=== PATIENT | female | born 1935 | race Caucasian/White ===

== ENCOUNTER → 2017-05-06 | Outpatient (CLI) | payer MEDICARE, OTHER ==
[~2017-05-06] MED LIST: FURO20TA3 PO; HYDR-3028 PO; LEVO50TA7 PO; LOSA50TA6 PO; METO25TA62 PO; POTA-167 PO
[2017-05-06 12:26] LABS: Basophils # (auto) 0 uL; Basophils % (auto) 0.5 % (0.0-2.0); CONDITION Y; Eosinophils # (auto) 0.2 uL; Eosinophils % (auto) 3.4 % (0.0-7.0); Hematocrit 36.9 % (36.0-46.0); Hemoglobin 12.7 g/dL (12.2-16.2); Lymphocytes # (auto) 1.5 uL; Lymphocytes % (auto) 24.3 % (10.0-50.0); Mean Corpuscular Hemoglobin 34.3 pg (28.0-32.0); Mean Corpuscular Hgb Conc. 34.4 g/dL (32.0-36.0); Mean Corpuscular Volume 99.6 fL (80.0-100.0); Mean Platelet Volume 8.7 fL (7.4-10.4); Monocytes # (auto) 0.6 uL; Monocytes % (auto) 9.6 % (0.0-12.0); Neutrophils # (auto) 3.9 uL; Neutrophils % (auto) 62.2 % (37.0-80.0); Platelet Count (auto) 254 10^3/uL (140-450); Red Cell Distribution Width 13.9 % (11.6-16.0); White Blood Cell 6.3 10^3/uL (4.4-10.8)
[2017-05-06 12:42] LABS: Albumin 3.7 g/dL (3.4-5.0); BUN/Creatinine Ratio 28.7; Bilirubin, Total 1.8 mg/dL (0.2-1.0); Calcium 9.5 mg/dL (8.5-10.1); Potassium 3.2 mmol/L (3.5-5.1); Total Protein 7.7 g/dL (6.4-8.2)
[2017-05-06 12:43] LABS: Bilirubin, Direct 0.4 mg/dL (0-0.2)
== END | disposition home or self-care (01) ==
LOC: LAB 08:34
PROVIDERS: ATTEND Internal Medicine Cardiovascular Disease
DX: I10 Essential (primary) hypertension (principal); E11.9 Type 2 diabetes mellitus without complications; E03.9 Hypothyroidism, unspecified; E78.00 Pure hypercholesterolemia, unspecified; K74.1 Hepatic sclerosis; D64.9 Anemia, unspecified; E55.9 Vitamin D deficiency, unspecified; N39.0 Urinary tract infection, site not specified
CPT/HCPCS: 36415; 80048; 80061; 80076; 82306; 83036; 84439; 84443; 85025; 93970

== ENCOUNTER → 2017-11-07 | Outpatient (CLI) | payer MEDICARE, OTHER ==
[~2017-11-07] MED LIST changes: +B-COTAB76 PO; +CRANCAP13 PO; -FURO20TA3 PO; +GABA100C9 PO; +HYDR25TA4 PO; +KRIL300C2 PO; -LOSA50TA6 PO; +LOVA20TA4 PO; -METO25TA62 PO; +MULTCHW PO; +TURM500C3 PO
== END | disposition home or self-care (01) ==
LOC: Rad HDHVI 09:52
PROVIDERS: ATTEND Internal Medicine Cardiovascular Disease
DX: M41.9 Scoliosis, unspecified (principal); M85.80 Other specified disorders of bone density and structure, unspecified site
CPT/HCPCS: 71046

== ENCOUNTER → 2018-01-06 | Outpatient (CLI) | payer MEDICARE, OTHER ==
[2018-01-06 12:32] LABS: Basophils # (auto) 0 uL; Basophils % (auto) 0.7 % (0.0-2.0); Eosinophils # (auto) 0.1 uL; Eosinophils % (auto) 2.2 % (0.0-7.0); Hematocrit 42.5 % (36.0-46.0); Hemoglobin 14.3 g/dL (12.2-16.2); Lymphocytes # (auto) 1.3 uL; Lymphocytes % (auto) 26.5 % (10.0-50.0); Mean Corpuscular Hemoglobin 34.1 pg (28.0-32.0); Mean Corpuscular Hgb Conc. 33.5 g/dL (32.0-36.0); Mean Corpuscular Volume 101.6 fL (80.0-100.0); Monocytes # (auto) 0.5 uL; Monocytes % (auto) 9.8 % (0.0-12.0); Neutrophils # (auto) 2.9 uL; Neutrophils % (auto) 60.8 % (37.0-80.0); Nucleated Red Blood Cells % 0.4 %; Platelet Count (auto) 184 10^3/uL (140-450); Red Blood Cells 4.18 10^6/uL (4.0-5.20); Red Cell Distribution Width 15.1 % (11.8-14.3); White Blood Cell 4.8 10^3/uL (4.4-10.8)
== END | disposition home or self-care (01) ==
LOC: LAB 10:46
PROVIDERS: ATTEND Internal Medicine Cardiovascular Disease
DX: D64.9 Anemia, unspecified (principal); I10 Essential (primary) hypertension; E11.9 Type 2 diabetes mellitus without complications
CPT/HCPCS: 36415; 85025

== ENCOUNTER → 2018-01-15 | Outpatient (CLI) | payer MEDICARE, OTHER | END | disposition home or self-care (01) | LOC: LAB 10:27 | PROVIDERS: ATTEND Internal Medicine Cardiovascular Disease | DX: R19.5 Other fecal abnormalities (principal); I10 Essential (primary) hypertension; E11.9 Type 2 diabetes mellitus without complications; E78.00 Pure hypercholesterolemia, unspecified; E78.5 Hyperlipidemia, unspecified | CPT/HCPCS: 82270 ==

== ENCOUNTER → 2018-02-24 | Outpatient (CLI) | payer MEDICARE, OTHER ==
[~2018-02-24] MED LIST changes: +FUROSEMIDE 40 MG/4 ML VIAL ONE; +POTASSIUM CHL 20 Meq TABLET PO ONE
[2018-02-24 13:00] VITALS: BP 150/61
[2018-02-24 13:35] VITALS: BP 150/70
[2018-02-24 16:01] LABS: Basophils # (auto) 0 uL; Eosinophils # (auto) 0.1 uL; Hemoglobin 13.6 g/dL (12.2-16.2); Lymphocytes # (auto) 1.2 uL; Monocytes # (auto) 0.5 uL; White Blood Cell 5.4 10^3/uL (4.4-10.8)
[2018-02-24 16:03] LABS: Basophils % (auto) 0.6 % (0.0-2.0); Eosinophils % (auto) 1.5 % (0.0-7.0); Hematocrit 40.4 % (36.0-46.0); Lymphocytes % (auto) 21.9 % (10.0-50.0); Mean Corpuscular Hemoglobin 34.5 pg (28.0-32.0); Mean Corpuscular Hgb Conc. 33.7 g/dL (32.0-36.0); Mean Corpuscular Volume 102.3 fL (80.0-100.0); Monocytes % (auto) 10.1 % (0.0-12.0); Neutrophils # (auto) 3.6 uL; Neutrophils % (auto) 65.9 % (37.0-80.0); Nucleated Red Blood Cells % 0.3 %; Platelet Count (auto) 173 10^3/uL (140-450); Red Blood Cells 3.94 10^6/uL (4.0-5.20); Red Cell Distribution Width 15.1 % (11.8-14.3)
[2018-02-24 16:14] LABS: BUN/Creatinine Ratio 22.5; Calcium 9.1 mg/dL (8.5-10.1); Magnesium 2.5 mg/dL (1.6-2.6); Potassium 4.4 mmol/L (3.5-5.1)
== END | disposition home or self-care (01) ==
LOC: Rad HDHVI 09:55
PROVIDERS: ATTEND Internal Medicine
DX: E83.40 Disorders of magnesium metabolism, unspecified (principal); D64.9 Anemia, unspecified; I10 Essential (primary) hypertension; M19.072 Primary osteoarthritis, left ankle and foot; M85.872 Other specified disorders of bone density and structure, left ankle and foot; M20.12 Hallux valgus (acquired), left foot; E78.5 Hyperlipidemia, unspecified; E11.9 Type 2 diabetes mellitus without complications; E78.00 Pure hypercholesterolemia, unspecified
CPT/HCPCS: 36415; 73630; 80048; 83735; 85025; 96374; G0463; J1940; 93971

== ENCOUNTER → 2018-07-21 | Outpatient (CLI) | payer MEDICARE, OTHER ==
[~2018-07-21] MED LIST changes: -FUROSEMIDE 40 MG/4 ML VIAL ONE; -POTASSIUM CHL 20 Meq TABLET PO ONE
[2018-07-21 11:58] LABS: Urine Blood Negative /uL (Negative); Urine Specific Gravity 1.016 (1.001-1.035)
[2018-07-21 12:08] LABS: Basophils # (auto) 0 uL; Eosinophils # (auto) 0.1 uL; Lymphocytes # (auto) 1.4 uL; Nucleated Red Blood Cells % 0.2 %
[2018-07-21 12:11] LABS: Basophils % (auto) 0.6 % (0.0-2.0); Eosinophils % (auto) 1.7 % (0.0-7.0); Hematocrit 43.8 % (36.0-46.0); Lymphocytes % (auto) 29.3 % (10.0-50.0); Mean Corpuscular Hemoglobin 35.1 pg (28.0-32.0); Mean Corpuscular Hgb Conc. 34.1 g/dL (32.0-36.0); Monocytes # (auto) 0.4 uL; Monocytes % (auto) 8.5 % (0.0-12.0); Neutrophils # (auto) 2.9 uL; Neutrophils % (auto) 59.9 % (37.0-80.0); Platelet Count (auto) 185 10^3/uL (140-450); Red Blood Cells 4.26 10^6/uL (4.0-5.20); Red Cell Distribution Width 15.1 % (11.8-14.3); White Blood Cell 4.9 10^3/uL (4.4-10.8)
[2018-07-21 12:16] LABS: Albumin 3.5 g/dL (3.4-5.0)
[2018-07-21 12:21] LABS: BUN/Creatinine Ratio 19.7; Calcium 8.7 mg/dL (8.5-10.1); Free T4 (Free Thyroxine) 1.64 ng/dL (0.89-1.76)
[2018-07-21 12:22] LABS: Bilirubin, Total 1.3 mg/dL (0.2-1.0); Total Protein 7.9 g/dL (6.4-8.2)
== END | disposition home or self-care (01) ==
LOC: Rad HDHVI 09:50
PROVIDERS: ATTEND Internal Medicine
DX: Z00.01 Encounter for general adult medical examination with abnormal findings (principal); I08.8 Other rheumatic multiple valve diseases; I10 Essential (primary) hypertension; E78.5 Hyperlipidemia, unspecified; E03.9 Hypothyroidism, unspecified; E55.9 Vitamin D deficiency, unspecified; E11.9 Type 2 diabetes mellitus without complications; D51.9 Vitamin B12 deficiency anemia, unspecified; N39.0 Urinary tract infection, site not specified
CPT/HCPCS: 36415; 80053; 80061; 81003; 82306; 82607; 83036; 84439; 84443; 85025; 87086; 93306

== ENCOUNTER → 2018-08-06 | Outpatient (CLI) | payer MEDICARE, OTHER ==
[2018-08-06 16:15] LABS: Albumin 3.4 g/dL (3.4-5.0)
[2018-08-06 16:19] LABS: Hepatitis B Surface Antibody Positive
[2018-08-06 16:20] LABS: Bilirubin, Direct 0.5 mg/dL (0-0.2); Bilirubin, Total 1.3 mg/dL (0.2-1.0)
[2018-08-06 16:58] LABS: Hepatitis A Total Antibody Positive; Hepatitis B Surface Antigen Negative (Negative)
[2018-08-06 18:42] LABS: Hepatitis B Core Total AB Negative
[2018-08-06 18:43] LABS: Hepatitis C Antibody Negative (Negative)
== END | disposition home or self-care (01) ==
LOC: LAB 11:40
PROVIDERS: ATTEND Internal Medicine
DX: K74.1 Hepatic sclerosis (principal); Z20.5 Contact with and (suspected) exposure to viral hepatitis
CPT/HCPCS: 36415; 80076; 86704; 86706; 86708; 86803; 87340

== ENCOUNTER → 2018-09-17 | Outpatient (CLI) | payer MEDICARE, OTHER ==
[2018-09-17 12:39] LABS: Bilirubin, Direct 0.5 mg/dL (0-0.2); Bilirubin, Total 1.5 mg/dL (0.2-1.0); Total Protein 7.4 g/dL (6.4-8.2)
== END | disposition home or self-care (01) ==
LOC: LAB 08:36
PROVIDERS: ATTEND Internal Medicine
DX: K74.1 Hepatic sclerosis (principal)
CPT/HCPCS: 36415; 80076

== ENCOUNTER 2018-10-30 16:11 | Inpatient (IN) | payer MEDICARE, OTHER ==
[~2018-10-30] VITALS: Ht 160 cm; Wt 84.0 kg
[2018-10-30] MEDS ORDERED: SODIUM CHLORIDE 0.9% 1,000 ML IV ONE (16:32)
[2018-10-30 17:08] LABS: Basophils # (auto) 0 uL; Eosinophils # (auto) 0.1 uL; Hemoglobin 14.9 g/dL (12.2-16.2); Lymphocytes # (auto) 1.3 uL
[2018-10-30 17:11] LABS: Basophils % (auto) 0.3 % (0.0-2.0); Eosinophils % (auto) 0.8 % (0.0-7.0); Hematocrit 42.6 % (36.0-46.0); Lymphocytes % (auto) 15.8 % (10.0-50.0); Mean Corpuscular Hemoglobin 35.5 pg (28.0-32.0); Mean Corpuscular Hgb Conc. 35.1 g/dL (32.0-36.0); Mean Corpuscular Volume 101.2 fL (80.0-100.0); Monocytes # (auto) 0.7 uL; Monocytes % (auto) 8.3 % (0.0-12.0); Neutrophils % (auto) 74.8 % (37.0-80.0); Platelet Count (auto) 160 10^3/uL (140-450); Red Blood Cells 4.21 10^6/uL (4.0-5.20); Red Cell Distribution Width 14.7 % (11.8-14.3)
[2018-10-30 17:13] LABS: Albumin 2.8 g/dL (3.4-5.0); Calcium 8.3 mg/dL (8.5-10.1); Magnesium 2.4 mg/dL (1.6-2.6); Potassium 3.1 mmol/L (3.5-5.1)
[2018-10-30 17:19] LABS: BUN/Creatinine Ratio 17.9; Bilirubin, Total 1.2 mg/dL (0.2-1.0); Total Protein 7.5 g/dL (6.4-8.2)
[2018-10-30] MEDS ORDERED: ENOXAPARIN SOD 80 MG/0.8ML SYRINGE SC ONE (17:30)
[2018-10-30] MEDS ORDERED: POTASSIUM EFFERVESENT TAB 25 MEQ PO ONE (17:30)
[2018-10-30 17:35] LABS: INR 1.1 (0.9-1.15); Partial Thromboplastin Time 30.6 sec (23.78-33.04); Prothrombin Time 11.7 sec (9.27-12.13)
[2018-10-30] MEDS ORDERED: NITROGLYCERIN 0.4 MG SL TAB SL PRN (19:15)
[2018-10-30] MEDS ORDERED: MORPHINE SULFATE 10 MG/ML INJ 1ML SDV IV PRN (19:15)
[2018-10-30] MEDS: SODIUM CHLORIDE 0.9% 1,000 ML IV SCH (19:15)
[2018-10-30] MEDS ORDERED: ONDANSETRON HCL 4 MG/2 ML VIAL IV PRN (19:15)
--- NOTE | 2018-10-30 20:52 | NUR ---
Telemetry admit from ER MAYKEL LANDRY admitted to Telemetry unit. Patient oriented to JANICE SUNG RN primary RN, unit, room, bed, and unit policies regarding patient care and visiting hours. Patient now on continuous telemetry monitoring, tele box # 14 and telemetry reading on arrival to unit is paced 68. Patient weighed by bedscale and encouraged to call if they need something. All questions and concerns addressed, patient verbalized understanding.
[2018-10-30 22:00] VITALS: BP 103/57
[2018-10-30] MEDS: METOPROLOL TARTRATE 25 MG TAB PO SCH (22:24)
[2018-10-30] MEDS: ATORVASTATIN 20 MG TAB PO SCH (22:24)
[2018-10-30 22:29] VITALS: BP 103/57
[2018-10-30] MEDS ORDERED: GABA100C9 PO (22:29)
[2018-10-30] MEDS ORDERED: POTA10TA51 PO (22:29)
[2018-10-30] MEDS ORDERED: LOVA20TA4 PO (22:29)
[2018-10-30] MEDS ORDERED: LEVO25TA49 PO (22:29)
[2018-10-30] MEDS ORDERED: FURO40TA PO (22:29)
[2018-10-30] MEDS ORDERED: HYDR-4683 PO (22:29)
[2018-10-30] MEDS ORDERED: MET25T PO (22:29)
[2018-10-30] MEDS ORDERED: HCTZ25T PO (22:29)
[2018-10-30] MEDS ORDERED: LOSA25TA40 PO (22:29)
[2018-10-30] MEDS ORDERED: CELE200C PO (22:29)
[2018-10-31 05:00] VITALS: BP 104/53
[2018-10-31] MEDS: SODIUM CHLORIDE 0.9% 1,000 ML IV SCH ×2 (05:15→06:48)
[2018-10-31 06:38] LABS: Basophils # (auto) 0 uL; Basophils % (auto) 0.7 % (0.0-2.0); Eosinophils # (auto) 0.1 uL; Eosinophils % (auto) 2.1 % (0.0-7.0); Hematocrit 40.4 % (36.0-46.0); Hemoglobin 14.2 g/dL (12.2-16.2); Lymphocytes # (auto) 1.3 uL; Lymphocytes % (auto) 23.3 % (10.0-50.0); Mean Corpuscular Hemoglobin 35.3 pg (28.0-32.0); Mean Corpuscular Hgb Conc. 35.1 g/dL (32.0-36.0); Mean Corpuscular Volume 100.6 fL (80.0-100.0); Monocytes # (auto) 0.5 uL; Monocytes % (auto) 8.7 % (0.0-12.0); Neutrophils # (auto) 3.5 uL; Neutrophils % (auto) 65.2 % (37.0-80.0); Nucleated Red Blood Cells % 0.1 %; Platelet Count (auto) 125 10^3/uL (140-450); Red Blood Cells 4.01 10^6/uL (4.0-5.20); Red Cell Distribution Width 14.8 % (11.8-14.3); White Blood Cell 5.4 10^3/uL (4.4-10.8)
[2018-10-31 06:40] LABS: BUN/Creatinine Ratio 22.9
[2018-10-31 08:00] VITALS: BP 120/67
--- NOTE | 2018-10-31 08:00 | NUR ---
ASSESSMENT NOTE PT IS ALERT ORIENTED TO SELF AND SITUATION, FORGETFUL ON TIMES, ABLE TO VERBALIS HER DEMANDS, PT IS INCONTINENT IN BOTH URINE AND STOOL, KEPT DRY AND CLEAN AT ALL TIMES, REPOSITION EVERY 2 HOURS AT ALL TIMES, HEAD OF BED ELEVATED FOR ASPIRATION PRECAUTIONS, NEXT TO THE NURSING STATION, CALL LIGHT WITHIN REACH.
[2018-10-31 09:00] VITALS: BP 105/63
[2018-10-31] MEDS: ASPirin-EC 81 mg tab PO SCH ×2 (09:34→10:52)
[2018-10-31] MEDS: GABAPENTIN 100 MG CAP PO SCH (09:34)
[2018-10-31] MEDS: METOPROLOL TARTRATE 25 MG TAB PO SCH ×2 (09:35→23:19)
[2018-10-31] MEDS ORDERED: POTASSIUM CHLORIDE 40 MEQ, LIDOCAINE 1% (LOCAL ANESTH.) 4 ML in SODIUM CHL 0.9% 100 ML IV ONE (10:30)
[2018-10-31] MEDS: ENOXAPARIN SOD 30 MG/0.3 ML SYRINGE SC SCH (10:53)
[2018-10-31 13:00] VITALS: BP 113/73
--- NOTE | 2018-10-31 13:30 | NUR ---
A COMPLETE LINEN BARNES DONE, PT IS INCONTINENT IN URINE.
--- NOTE | 2018-10-31 14:30 | NUR ---
PT WAKE UP, FULLY ALERT ORIENTED, START TO CRY STATED < IS MY DAUGHTER KNOW I AM HERE> DIAL PT'S DAUGHTER PHONE NUMBER, PT IS TALKNING TO HER DAUGHTER.
--- NOTE | 2018-10-31 15:30 | NUR ---
PT'S SON IS CALLING HIS MOM OVER THE PHONE
--- NOTE | 2018-10-31 15:50 | NUR ---
DR HARO IS HERE FOLLOWING UP ON PT.
--- NOTE | 2018-10-31 16:00 | NUR ---
FAMILY PT DAUGHTER ND GRAND DAUGHTER AT BED SIDE
--- NOTE | 2018-10-31 16:30 | NUR ---
PT APPEAR CALM, SMILING, NO MORE CRYING.
[2018-10-31 17:00] VITALS: BP 129/76
--- NOTE | 2018-10-31 18:53 | NUR ---
PT CONTINUE STABLE, CONTINUE MONITORING.
--- NOTE | 2018-10-31 19:00 | NUR ---
OPENING SHIFT NOTE Received report from day shift RN. Patient is A&O X's 3. Family is at bedside. Educated patient and family on POC. They verbalized understanding. Patient shows no s/s of distress but has some periods of confusion. Patient had urinated in bed during this time. Patient was cleaned with warm wash cloth and new david was placed under patient. Bed is in lowest/locked position with side rails up X's 2. Call light is within reach of patient. Will continue to monitor and round hourly/PRN.
[2018-10-31 21:55] VITALS: BP 126/44
[2018-10-31] MEDS: ATORVASTATIN 20 MG TAB PO SCH (23:18)
[2018-11-01] MEDS: SODIUM CHLORIDE 0.9% 1,000 ML IV SCH ×2 (02:34→14:55)
[2018-11-01 04:54] VITALS: BP 127/83
--- NOTE | 2018-11-01 06:13 | NUR ---
ROUNDS Patient is resting in bed at this moment with no s/s of distress noted. Will continue to monitor and round hourly/PRN.
[2018-11-01 07:04] LABS: Basophils # (auto) 0 uL; Basophils % (auto) 0.7 % (0.0-2.0); Eosinophils # (auto) 0.1 uL; Lymphocytes # (auto) 1.1 uL; Monocytes # (auto) 0.5 uL; Red Cell Distribution Width 14.7 % (11.8-14.3)
[2018-11-01 07:06] LABS: Eosinophils % (auto) 2.2 % (0.0-7.0); Lymphocytes % (auto) 19.7 % (10.0-50.0); Mean Corpuscular Hemoglobin 35.3 pg (28.0-32.0); Monocytes % (auto) 8.8 % (0.0-12.0); Neutrophils % (auto) 68.6 % (37.0-80.0); Nucleated Red Blood Cells % 0.2 %; Platelet Count (auto) 139 10^3/uL (140-450); Red Blood Cells 3.96 10^6/uL (4.0-5.20); White Blood Cell 5.8 10^3/uL (4.4-10.8)
--- NOTE | 2018-11-01 07:10 | NUR ---
CLOSING SHIFT NOTE Gave report to day shift RN. Will endorse care over now.
[2018-11-01 07:17] LABS: Potassium 3.4 mmol/L (3.5-5.1)
[2018-11-01 07:26] LABS: BUN/Creatinine Ratio 24.8; Calcium 8.1 mg/dL (8.5-10.1)
[2018-11-01 08:00] VITALS: BP 125/55
--- NOTE | 2018-11-01 08:00 | NUR ---
ASSESSMENT NOTE PT IS ALERT ORIENTED TO SELF AND PLACE, CONFUSED IN TIMES, NO DISTRESS NOTED, INCONTINENT FOR URINE, OCCASIONALLY PT ASK FOR A BED MON, REPOSITION EVERY 2 HOURS AT ALL TIMES, KEPR CLEAN AND DRY, HEAD OF BED ELEVATED FOR ASPIRATION PRECAUTIONS. MENTAL STATUS PT IS MUCH BETTER COMPARING YESTERDAY, ABLE TO INTERACT IN CONVERSATIONS, AGREE TO EAT BREAKFAST, CONTINUE ASSISTING WITH HER MEALS DUE TO SEVERE WEAKNESS ON BOTH UPPER EXTREMITIES.
[2018-11-01 09:00] VITALS: BP 131/68
[2018-11-01] MEDS: ASPirin-EC 81 mg tab PO SCH (09:34)
[2018-11-01] MEDS: METOPROLOL TARTRATE 25 MG TAB PO SCH ×2 (09:34→22:22)
[2018-11-01] MEDS: GABAPENTIN 100 MG CAP PO SCH (09:34)
[2018-11-01] MEDS: ENOXAPARIN SOD 30 MG/0.3 ML SYRINGE SC SCH (09:35)
--- NOTE | 2018-11-01 11:30 | NUR ---
DR HARO AT BED SIDE FOLLOWING UP ON PT.
[2018-11-01] MEDS ORDERED: POTASSIUM EFFERVESENT TAB 25 MEQ PO ONE (11:45)
--- NOTE | 2018-11-01 11:53 | NUR ---
ADELFO JAIN AT BED SIDE FOLLOWING UP ON PT.
--- NOTE | 2018-11-01 11:53 | NUR ---
IV insertion IV access obtained, via clean sterile technique by inserting 22 gauge catheter at after attempt(s). IV secured properly. No trauma to site. Patient tolerated procedure well.OLD IV AT LEFT UPPER EDWARD REMOVED AFTER SIGNS OF INFILTRAION NOTED.
[2018-11-01 13:00] VITALS: BP 125/64
[2018-11-01 17:00] VITALS: BP 131/87
--- NOTE | 2018-11-01 18:38 | NUR ---
PT CONTINUE STABLE, ASSISTED IN EACH MEALS, KEPT CLEAN AND DRY AT ALL TIMES.
--- NOTE | 2018-11-01 19:00 | NUR ---
OPENING SHIFT NOTE Received report from day shift RN. Patient is A&O X's 4 with no s/s of distress. Educated patient on POC and to use call light when needing to use bedpan. Patient verbalized understanding. Bed is in lowest/locked position with side rails up X's 2. Call light and personal items are within reach of patient. Will continue to monitor and round hourly/PRN.
[2018-11-01 21:27] VITALS: BP 97/62
--- NOTE | 2018-11-01 22:15 | NUR ---
ROUNDS Patient was placed on bedpan at this moment and had a BM. Patient was cleaned with warm washcloths at this time. She was repositioned and feet elevated on pillows. Will continue to monitor and round hourly/PRN.
[2018-11-01] MEDS: ATORVASTATIN 20 MG TAB PO SCH (22:21)
[2018-11-02] MEDS: SODIUM CHLORIDE 0.9% 1,000 ML IV SCH ×2 (01:17→18:02)
[2018-11-02 05:44] VITALS: BP 121/66
[2018-11-02] MEDS: LEVOTHYROXINE SODIUM 88 MCG TAB PO SCH (06:25)
--- NOTE | 2018-11-02 06:27 | NUR ---
ROUNDS Patient shows no s/s of distress. Patient was placed on bedpan and she urinated. Patient was cleaned with warm wash cloth and partial linen change was done.
[2018-11-02 07:14] LABS: Basophils # (auto) 0 uL; Hemoglobin 14.5 g/dL (12.2-16.2); Lymphocytes # (auto) 1.1 uL; Monocytes # (auto) 0.5 uL; Neutrophils # (auto) 3.2 uL; Nucleated Red Blood Cells % 0.1 %
[2018-11-02 07:15] LABS: Basophils % (auto) 0.7 % (0.0-2.0); Eosinophils # (auto) 0.1 uL; Hematocrit 42.5 % (36.0-46.0); Lymphocytes % (auto) 21.7 % (10.0-50.0); Mean Corpuscular Hemoglobin 34.8 pg (28.0-32.0); Mean Corpuscular Hgb Conc. 34.1 g/dL (32.0-36.0); Mean Corpuscular Volume 101.9 fL (80.0-100.0); Monocytes % (auto) 10.5 % (0.0-12.0); Neutrophils % (auto) 64.1 % (37.0-80.0); Platelet Count (auto) 135 10^3/uL (140-450); Red Blood Cells 4.17 10^6/uL (4.0-5.20); Red Cell Distribution Width 14.8 % (11.8-14.3)
[2018-11-02 07:28] LABS: Anion Gap 5 (5-15); BUN/Creatinine Ratio 23.4; Blood Urea Nitrogen 22 mg/dL (7-18); Carbon Dioxide 26 mmol/L (21-32); Chloride 109 mmol/L (98-107); GFR African American > 60 mL/min; GFR Non-African American 60 mL/min; Glucose 92 mg/dL (74-106); Potassium 3.7 mmol/L (3.5-5.1); Sodium 140 mmol/L (136-145)
--- NOTE | 2018-11-02 07:30 | NUR ---
OPENING NOTE ASSUMED CARE OF PT. PT IS LAYING ON BED. A&O X4. PT IS ON ROOM AIR, O2 SATURATION 99%. NO SIGNS OF SOB/DISTRESS NOTED. TELE #14, HR 67. SAFETY PRECAUTIONS IN PLACE INCLUDING BED SET TO LOWEST POSITION/LOCKED. BEDSIDE RAILS UP X2. BED ALARM ON. CALL LIGHT WITHIN REACH. INSTRUCTED PT TO CALL FOR ASSISTANCE. DISCUSSED POC WITH PT. WILL CONTINUE TO MONITOR Q 1HR AND PRN.
[2018-11-02 09:48] VITALS: BP 109/66
[2018-11-02] MEDS: ASPirin-EC 81 mg tab PO SCH (10:40)
[2018-11-02] MEDS: GABAPENTIN 100 MG CAP PO SCH (10:40)
[2018-11-02] MEDS: METOPROLOL TARTRATE 25 MG TAB PO SCH ×2 (10:40→22:44)
[2018-11-02] MEDS: ENOXAPARIN SOD 30 MG/0.3 ML SYRINGE SC SCH (10:41)
[2018-11-02 13:46] VITALS: BP 136/80
[2018-11-02] MEDS ORDERED: HYDROcodone-ACET 5/325MG TAB PO PRN (15:45)
--- NOTE | 2018-11-02 16:59 | NUR ---
PATIENT OFF UNIT VIA BED TO [facility] FOR VQ SCAN.
[2018-11-02 17:24] VITALS: BP 124/77
--- NOTE | 2018-11-02 17:50 | NUR ---
PATIENT BACK ON UNIT VIA BED FROM [facility]. NO SIGNS OF SOB/DISTRESS NOTED.
--- NOTE | 2018-11-02 19:20 | NUR ---
Opening Note Received change of shift report from day shift RN. Patient is awake, alert and oriented x4. No signs or symptoms of distress noted at this time. Patient states she is having back pain 8/. Will medicated as ordered. Reviewed plan of care, patient verbalized understanding. Bed in low and locked position, call light within reach. Will continue to monitor Q1 hour and PRN.
--- NOTE | 2018-11-02 20:54 | NUR ---
CLOSING NOTE ENDORSED CARE TO SUMMER RN.
[2018-11-02] MEDS: ATORVASTATIN 20 MG TAB PO SCH (22:40)
[2018-11-02 23:40] VITALS: BP 110/63
--- NOTE | 2018-11-03 00:15 | NUR ---
Patient resting comfortably in bed with eyes closed. No signs or symptoms noted at this time. Will continue to monitor Q1 hour and PRN.
--- NOTE | 2018-11-03 04:30 | NUR ---
Patient given bed bath, full linen change completed. Patient tolerated well, Will continue to monitor Q1 hour PRN.
[2018-11-03 05:32] VITALS: BP 129/86
[2018-11-03] MEDS: SODIUM CHLORIDE 0.9% 1,000 ML IV SCH (05:50)
[2018-11-03] MEDS: LEVOTHYROXINE SODIUM 88 MCG TAB PO SCH (06:23)
[2018-11-03 07:00] LABS: Basophils # (auto) 0 uL; Basophils % (auto) 0.6 % (0.0-2.0); Monocytes # (auto) 0.6 uL
[2018-11-03 07:04] LABS: Eosinophils # (auto) 0.2 uL; Hematocrit 39.5 % (36.0-46.0); Hemoglobin 13.5 g/dL (12.2-16.2); Lymphocytes # (auto) 1.3 uL; Mean Corpuscular Hemoglobin 35.1 pg (28.0-32.0); Mean Corpuscular Hgb Conc. 34.3 g/dL (32.0-36.0); Mean Corpuscular Volume 102.4 fL (80.0-100.0); Monocytes % (auto) 10.7 % (0.0-12.0); Neutrophils # (auto) 3.2 uL; Neutrophils % (auto) 60.7 % (37.0-80.0); Nucleated Red Blood Cells % 0.2 %; Platelet Count (auto) 115 10^3/uL (140-450); Red Blood Cells 3.85 10^6/uL (4.0-5.20); White Blood Cell 5.3 10^3/uL (4.4-10.8)
[2018-11-03 07:14] LABS: Anion Gap 7 (5-15); Blood Urea Nitrogen 19 mg/dL (7-18); Calcium 7.7 mg/dL (8.5-10.1); Carbon Dioxide 23 mmol/L (21-32); Chloride 109 mmol/L (98-107); Glucose 84 mg/dL (74-106); Potassium 3.7 mmol/L (3.5-5.1); Sodium 139 mmol/L (136-145)
--- NOTE | 2018-11-03 07:15 | NUR ---
Closing Note Report given to dayshift RN. Patient is resting in bed with eyes closed. No signs or symptoms of distress noted at this time.
[2018-11-03 07:21] LABS: BUN/Creatinine Ratio 20.9; GFR African American > 60 mL/min; GFR Non-African American > 60 mL/min
--- NOTE | 2018-11-03 07:25 | NUR ---
OPENING NOTE ASSUMED CARE OF PT. PT IS LAYING ON BED. A&O X4. PT IS ON ROOM AIR, O2 SATURATION 92%. NO SIGNS OF SOB/DISTRESS NOTED. TELE #14, HR 61. PT DENIES ANY PAIN. SAFETY PRECAUTIONS IN PLACE INCLUDING BED SET TO LOWEST POSITION/LOCKED. BEDSIDE RAILS UP X2. BED ALARM ON. CALL LIGHT WITHIN REACH. INSTRUCTED PT TO CALL FOR ASSISTANCE. DISCUSSED POC WITH PT. WILL CONTINUE TO MONITOR Q 1HR AND PRN.
[2018-11-03 09:00] VITALS: BP 125/58
[2018-11-03] MEDS: METOPROLOL TARTRATE 25 MG TAB PO SCH (10:00)
[2018-11-03] MEDS: ASPirin-EC 81 mg tab PO SCH (10:32)
[2018-11-03] MEDS: GABAPENTIN 100 MG CAP PO SCH (10:33)
[2018-11-03] MEDS: ENOXAPARIN SOD 30 MG/0.3 ML SYRINGE SC SCH (10:33)
--- NOTE | 2018-11-03 11:46 | NUR ---
assessment Per consult arrange transportation back to assisted living. Per [facility] they do not have transport for patient. 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 Addendum: 11/03/18 at 1147 by Laura James Amended: Links added.
[2018-11-03 12:25] VITALS: BP 125/58
[2018-11-03 13:41] VITALS: BP 121/58
--- NOTE | 2018-11-03 14:10 | NUR ---
Discharge instructions given as ordered. Encourage to follow up with Dr. Gonzalez on 11/10/18 at 3:00 PM, [id number] [address] ERI Shabazz. . All questions and concerns addressed. Patient verbalized understanding. No home medications held in Pharmacy and no vaccines given. IV removed with catheter intact, pressure dressing applied. Telemetry unit #14 returned to ICU.
--- NOTE | 2018-11-03 14:35 | NUR ---
Patient taken to vehicle via wheelchair by transport with all personal belongings, accompanied by transport staff. No distress noted at time of departure.
== END 2018-11-03 14:35 | disposition home or self-care (01) | DRG 682 ==
LOC: EDBD 16:11 → EDUNIT# 16:11 → ER 16:14 → TELE 19:36 → EAST 20:00 → TELE-EAST 20:55
PROVIDERS: ADMIT Nurse Practitioner Acute Care; ATTEND Internal Medicine
DX: N17.0 Acute kidney failure with tubular necrosis (principal); G92 Toxic encephalopathy; E44.0 Moderate protein-calorie malnutrition; J98.11 Atelectasis; I50.32 Chronic diastolic (congestive) heart failure; I13.0 Hypertensive heart and chronic kidney disease with heart failure and stage 1 through stage 4 chronic kidney disease, or unspecified chronic kidney disease; E87.1 Hypo-osmolality and hyponatremia; N18.3 Chronic kidney disease, stage 3 (moderate); D69.6 Thrombocytopenia, unspecified; E87.6 Hypokalemia; E03.9 Hypothyroidism, unspecified; E78.5 Hyperlipidemia, unspecified; G89.4 Chronic pain syndrome; I70.0 Atherosclerosis of aorta; R54 Age-related physical debility; I08.0 Rheumatic disorders of both mitral and aortic valves; R62.7 Adult failure to thrive; Z79.890 Hormone replacement therapy; Z80.51 Family history of malignant neoplasm of kidney; Z80.8 Family history of malignant neoplasm of other organs or systems; Z82.5 Family history of asthma and other chronic lower respiratory diseases; Z85.3 Personal history of malignant neoplasm of breast; Z90.11 Acquired absence of right breast and nipple; Z95.0 Presence of cardiac pacemaker; Z91.040 Latex allergy status; Z79.899 Other long term (current) drug therapy; Z68.32 Body mass index [BMI] 32.0-32.9, adult
CPT/HCPCS: 36415; 71045; 78582; 80048; 80053; 80061; 83735; 84443; 84484; 85025; 85379; 85610; 85652; 85730; 86141; 87081; 93005; 93306; 96372; 97163; G0378; J2001

== ENCOUNTER → 2019-02-09 | Outpatient (CLI) | payer MEDICARE, OTHER ==
[~2019-02-09] MED LIST changes: +AMIO200T33 PO; +APIX5TAB OR; +B-COCAP23 PO; -B-COTAB76 PO; +CELE200C PO; -CRANCAP13 PO; +FURO40TA PO; -HYDR-3028 PO; +HYDR-4683 PO; -HYDR25TA4 PO; -KRIL300C2 PO; +LEVO25TA49 PO; -LEVO50TA7 PO; +LOSA25TA40 PO; +MET25T PO; +MULTCAP45 PO; -MULTCHW PO; -POTA-167 PO; +POTA10TA51 PO; +PROP80CA40 PO; -TURM500C3 PO
[2019-02-09 16:10] LABS: Urine Blood Negative /uL (Negative); Urine Specific Gravity 1.016 (1.001-1.035)
[2019-02-09 16:22] LABS: Basophils # (auto) 0.1 uL; Eosinophils # (auto) 0.3 uL; Lymphocytes # (auto) 1.3 uL; Neutrophils # (auto) 2.7 uL
[2019-02-09 16:24] LABS: Basophils % (auto) 1.3 % (0.0-2.0); Eosinophils % (auto) 5.8 % (0.0-7.0); Hematocrit 38.5 % (36.0-46.0); Hemoglobin 13.1 g/dL (12.2-16.2); Lymphocytes % (auto) 26.7 % (10.0-50.0); Mean Corpuscular Hemoglobin 35.4 pg (28.0-32.0); Mean Corpuscular Hgb Conc. 33.9 g/dL (32.0-36.0); Mean Corpuscular Volume 104.6 fL (80.0-100.0); Monocytes # (auto) 0.5 uL; Neutrophils % (auto) 56.2 % (37.0-80.0); Nucleated Red Blood Cells % 2.6 %; Platelet Count (auto) 157 10^3/uL (140-450); Red Blood Cells 3.68 10^6/uL (4.0-5.20); Red Cell Distribution Width 16.7 % (11.8-14.3); White Blood Cell 4.8 10^3/uL (4.4-10.8)
[2019-02-09 16:26] LABS: Potassium 3.5 mmol/L (3.5-5.1)
[2019-02-09 16:31] LABS: Free T4 (Free Thyroxine) 1.52 ng/dL (0.89-1.76)
[2019-02-09 16:38] LABS: Albumin 2.5 g/dL (3.4-5.0); BUN/Creatinine Ratio 18.9; Bilirubin, Total 1.4 mg/dL (0.2-1.0); Calcium 8.7 mg/dL (8.5-10.1); Total Protein 7.4 g/dL (6.4-8.2)
== END | disposition home or self-care (01) ==
LOC: LAB 11:39
PROVIDERS: ATTEND Internal Medicine Cardiovascular Disease
DX: N39.0 Urinary tract infection, site not specified (principal); E03.9 Hypothyroidism, unspecified; E55.9 Vitamin D deficiency, unspecified; D51.9 Vitamin B12 deficiency anemia, unspecified; Z79.899 Other long term (current) drug therapy
CPT/HCPCS: 36415; 80053; 80061; 81003; 82306; 82607; 83036; 84439; 84443; 85025; 87086

== ENCOUNTER → 2019-05-11 | Outpatient (CLI) | payer MEDICARE, OTHER ==
[~2019-05-11] MED LIST changes: +FURO1TAB31 PO; -FURO40TA PO; -HYDR-4683 PO; +HYDR-4833 PO; +LOSA25TA38 PO; -LOSA25TA40 PO; +VANCOMYCIN 1GM/250ML 250 ML IV ONE; +cefTRIAXone 1GM/50ML D5W 50 ML IV ONE
[2019-05-11 13:11] VITALS: BP 143/75
--- NOTE | 2019-05-11 13:11 | NUR ---
PATIENT SENT FROM MD SIDE, VERBAL ORDERS RECEIVED ENTERED.
--- NOTE | 2019-05-11 13:30 | NUR ---
IV insertion IV access obtained by Tammy SOTO, via clean sterile technique by inserting 22 gauge catheter at after 1 attempt(s). IV secured properly. No trauma to site. Patient tolerated procedure well.
--- NOTE | 2019-05-11 14:26 | NUR ---
DOPPLER STUDY TO BE DONE IN RECLINER CHAIR DUE TO PATIENTS LIMITED MOBILITY AND DIFFICULTY ACCESSING EXAM TABLE. IV VANCOMYCIN IN PROGRESS, VSS, TOLERATING WELL.
--- NOTE | 2019-05-11 14:35 | NUR ---
VENOUS DOPPLER COMPLETED. TOLERATED WELL. REMAINS IN CHAIR FOR REMAINDER OF INFUSION.
--- NOTE | 2019-05-11 14:45 | NUR ---
INFUSION COMPLETED. TOLERATED WELL. IV removal IV DC'd with sterile technique, catheter fully intact. Pressure dressing applied to site. Patient tolerated procedure well. 3 PERSON ASSIST TO STANDING POSITION AND ASSISTED WITH CLOTHING AND INTO CHAIR.
--- NOTE | 2019-05-11 15:05 | NUR ---
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 IN WHEELCHAIR, WITHOUT DISTRESS. MEDICATION ADMINISTRATION ROCEPHIN 1 GRAM IVP START AT 1330-STOP AT 1345 VANCOMYCIN 1 GRAM IVPB START AT 1345-STOP AT 1445
[2019-05-11 16:05] LABS: Albumin 2.9 g/dL (3.4-5.0); Calcium 8.8 mg/dL (8.5-10.1); Potassium 4.3 mmol/L (3.5-5.1)
[2019-05-11 16:09] LABS: BUN/Creatinine Ratio 22.2; Bilirubin, Total 1.8 mg/dL (0.2-1.0)
[2019-05-11 16:12] LABS: Basophils # (auto) 0 uL; Eosinophils # (auto) 0.2 uL; Eosinophils % (auto) 3.4 % (0.0-7.0); Lymphocytes # (auto) 1.5 uL; Lymphocytes % (auto) 30.3 % (10.0-50.0); Nucleated Red Blood Cells % 0.1 %; Red Cell Distribution Width 17.2 % (11.8-14.3)
[2019-05-11 16:16] LABS: Basophils % (auto) 0.5 % (0.0-2.0); Hemoglobin 13.6 g/dL (12.2-16.2); Mean Corpuscular Hemoglobin 35.3 pg (28.0-32.0); Mean Corpuscular Volume 104.1 fL (80.0-100.0); Monocytes # (auto) 0.5 uL; Monocytes % (auto) 10.8 % (0.0-12.0); Neutrophils # (auto) 2.8 uL; Platelet Count (auto) 113 10^3/uL (140-450); Red Blood Cells 3.84 10^6/uL (4.0-5.20)
== END | disposition home or self-care (01) ==
LOC: CHF HDHVI 13:19
PROVIDERS: ATTEND Internal Medicine Cardiovascular Disease
DX: L03.115 Cellulitis of right lower limb (principal); D64.9 Anemia, unspecified; I10 Essential (primary) hypertension
CPT/HCPCS: 36415; 80053; 85025; 96365; 96375; G0463; J0696; J3370

== ENCOUNTER → 2019-06-01 | Outpatient (CLI) | payer MEDICARE, OTHER ==
[~2019-06-01] MED LIST changes: -VANCOMYCIN 1GM/250ML 250 ML IV ONE; -cefTRIAXone 1GM/50ML D5W 50 ML IV ONE
[2019-06-01 12:50] VITALS: BP 152/85
[2019-06-01 13:35] VITALS: BP 147/74
--- NOTE | 2019-06-01 13:35 | NUR ---
IN TO CLINIC FOR DERRICK BOOT APPLICATION TO BILATERAL LEGS. RIGHT CALF REDDENED, BUT MD DID SEE PATIENT. PT CONTINUES TO BE ON ORAL ANTIBIOTICS. DERRICK BOOTS APPLIED BILATERALLY AND TOLERATED WELL. ASSISTED TO CHAIR WITH 2 PERSON ASSISTANCE. TOLERATED WELL. 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 IN NO DISTRESS OR DISCOMFORT.
[2019-06-01 16:12] LABS: Potassium 3.9 mmol/L (3.5-5.1)
[2019-06-01 16:28] LABS: Basophils # (auto) 0 uL; Eosinophils # (auto) 0.2 uL; Lymphocytes # (auto) 1.3 uL; Mean Corpuscular Volume 104.8 fL (80.0-100.0)
[2019-06-01 16:30] LABS: Basophils % (auto) 1.1 % (0.0-2.0); Eosinophils % (auto) 5.1 % (0.0-7.0); Hematocrit 38.9 % (36.0-46.0); Hemoglobin 13.2 g/dL (12.2-16.2); Lymphocytes % (auto) 33.5 % (10.0-50.0); Mean Corpuscular Hemoglobin 35.4 pg (28.0-32.0); Mean Corpuscular Hgb Conc. 33.8 g/dL (32.0-36.0); Monocytes # (auto) 0.5 uL; Monocytes % (auto) 13.5 % (0.0-12.0); Neutrophils # (auto) 1.8 uL; Neutrophils % (auto) 46.8 % (37.0-80.0); Nucleated Red Blood Cells % 0.3 %; Platelet Count (auto) 117 10^3/uL (140-450); Red Blood Cells 3.71 10^6/uL (4.0-5.20); Red Cell Distribution Width 16.2 % (11.8-14.3); White Blood Cell 3.8 10^3/uL (4.4-10.8)
== END | disposition home or self-care (01) ==
LOC: CHF HDHVI 13:06
PROVIDERS: ATTEND Internal Medicine
DX: E87.6 Hypokalemia (principal); D64.9 Anemia, unspecified; I11.0 Hypertensive heart disease with heart failure; I50.9 Heart failure, unspecified
CPT/HCPCS: 36415; 82565; 84132; 84520; 85025; G0463

== ENCOUNTER → 2019-06-03 | Outpatient (CLI) | payer MEDICARE, OTHER ==
[2019-06-03 09:20] VITALS: BP 137/69
[2019-06-03 10:15] VITALS: BP 132/73
--- NOTE | 2019-06-03 10:15 | NUR ---
IN VIA WHEELCHAIR FOR DERRICK BOOT APPLICATION BILATERALLY. BOTH LEGS OBSERVED AND APPEAR TO BE OVERALL LESS REDDENED AND LESS SWOLLEN COMPARED TO PREVIOUS TREATMENT, NOTED BY BETO PINA AND GIBRAN SOTO. PT ASSISTED TO CHAIR AND DERRICK BOOTS APPLIED BILATERALLY. COVERED WITH COBAN AND STOCKINGNETTE. TOLERATED WELL. DISCHARGED TO CAREGIVER. IN NO DISTRESS OR DISCOMFORT.
--- NOTE | 2019-06-03 10:30 | NUR ---
PT REPORTS CRAMPING IN LEGS. ADDRESSED TO DR HARO AND PT INSTRUCTED TO TAKE MAG OXIDE 400 MG PO DAILY PER BETO PINA.
== END | disposition home or self-care (01) ==
LOC: CHF HDHVI 09:27
PROVIDERS: ATTEND Internal Medicine Cardiovascular Disease
DX: R60.0 Localized edema (principal); I11.0 Hypertensive heart disease with heart failure; I50.31 Acute diastolic (congestive) heart failure
CPT/HCPCS: G0463

== ENCOUNTER → 2019-06-08 | Outpatient (CLI) | payer MEDICARE, OTHER ==
[2019-06-08 09:22] VITALS: BP 140/71
[2019-06-08 10:20] VITALS: BP 155/76
--- NOTE | 2019-06-08 10:20 | NUR ---
IN FOR DERRICK BOOT APPLICATION. NOTED TO HAVE WEIGHT LOSS SINCE LAST VISIT. OLD DERRICK BOOTS REMOVED AND SKIN INTACT. NEW DERRICK BOOTS APPLIED AND TOLERATED WELL. DISCHARGED TO SELF CARE IN WHEELCHAIR WITH AUDIO INSTALLER TO ASSIST HER BACK TO HER FACILITY. VS LUCIENL.
== END | disposition home or self-care (01) ==
LOC: CHF HDHVI 09:33
PROVIDERS: ATTEND Internal Medicine Cardiovascular Disease
DX: E87.70 Fluid overload, unspecified (principal); I11.0 Hypertensive heart disease with heart failure; I50.9 Heart failure, unspecified
CPT/HCPCS: G0463

== ENCOUNTER → 2019-06-10 | Outpatient (CLI) | payer MEDICARE, OTHER ==
[2019-06-10 09:41] VITALS: BP 106/65
--- NOTE | 2019-06-10 09:41 | NUR ---
CHF PT ARRIVED TO CHF CLINIC FOR WOUND CARE (UNNA BOOT THERAPY). A/O X 3 , VSS NO FURTHER TREATMENT TOOK OFF UNNA BOOTS NOT NEEDED TO REAPPLY
[2019-06-10 10:35] VITALS: BP 143/46
--- NOTE | 2019-06-10 10:35 | NUR ---
Discharge Instructions See e-MAR for any mediations given with this visit. Patient education given on disease process. Patient verbalized understanding. Previous labs reviewed. Patient discharged in stable condition with after care instructions and follow up appointment.
== END | disposition home or self-care (01) ==
LOC: CHF HDHVI 09:48
PROVIDERS: ATTEND Internal Medicine
DX: I11.0 Hypertensive heart disease with heart failure (principal); I50.31 Acute diastolic (congestive) heart failure; E87.70 Fluid overload, unspecified
CPT/HCPCS: G0463

== ENCOUNTER → 2019-07-26 | Outpatient (CLI) | payer MEDICARE, OTHER ==
[2019-07-26 12:03] LABS: Basophils # (auto) 0 uL; Eosinophils # (auto) 0.2 uL; Hemoglobin 13.6 g/dL (12.2-16.2); Mean Corpuscular Hgb Conc. 33.2 g/dL (32.0-36.0)
[2019-07-26 12:05] LABS: Eosinophils % (auto) 5.9 % (0.0-7.0); Hematocrit 40.8 % (36.0-46.0); Lymphocytes # (auto) 1.6 uL; Lymphocytes % (auto) 38.6 % (10.0-50.0); Mean Corpuscular Volume 105.3 fL (80.0-100.0); Monocytes # (auto) 0.4 uL; Monocytes % (auto) 9.8 % (0.0-12.0); Neutrophils # (auto) 1.9 uL; Neutrophils % (auto) 44.7 % (37.0-80.0); Nucleated Red Blood Cells % 0.2 %; Platelet Count (auto) 100 10^3/uL (140-450); Red Blood Cells 3.87 10^6/uL (4.0-5.20); Red Cell Distribution Width 15.8 % (11.8-14.3); White Blood Cell 4.2 10^3/uL (4.4-10.8)
[2019-07-26 12:16] LABS: Calcium 8.8 mg/dL (8.5-10.1)
== END | disposition home or self-care (01) ==
LOC: LAB 09:45
PROVIDERS: ATTEND Internal Medicine
DX: D64.9 Anemia, unspecified (principal); I11.0 Hypertensive heart disease with heart failure; I50.9 Heart failure, unspecified
CPT/HCPCS: 36415; 80048; 85025

== ENCOUNTER → 2019-08-30 | Outpatient (CLI) | payer MEDICARE, OTHER | END | disposition home or self-care (01) | LOC: Rad HDHVI 10:00 | PROVIDERS: ATTEND Internal Medicine Cardiovascular Disease | DX: I08.8 Other rheumatic multiple valve diseases (principal); R00.2 Palpitations; G45.9 Transient cerebral ischemic attack, unspecified; I11.0 Hypertensive heart disease with heart failure; I50.23 Acute on chronic systolic (congestive) heart failure; I27.20 Pulmonary hypertension, unspecified | CPT/HCPCS: 93306 ==

== ENCOUNTER 2019-10-27 07:55 | Inpatient (IN) | payer MEDICARE, OTHER ==
[~2019-10-27] VITALS: Ht 160 cm; Wt 91.9 kg
[2019-10-27] MEDS ORDERED: SODIUM CHLORIDE 0.9% 1,000 ML IV ONE (08:11)
[2019-10-27 08:28] LABS: Basophils # (auto) 0.1 uL; Eosinophils # (auto) 0 uL; Monocytes # (auto) 1.1 uL; Nucleated Red Blood Cells % 0.1 %
[2019-10-27 08:30] LABS: Basophils % (auto) 0.5 % (0.0-2.0); Eosinophils % (auto) 0.3 % (0.0-7.0); Lymphocytes # (auto) 2.2 uL; Lymphocytes % (auto) 18.2 % (10.0-50.0); Mean Corpuscular Hemoglobin 35.7 pg (28.0-32.0); Mean Corpuscular Volume 101.8 fL (80.0-100.0); Monocytes % (auto) 8.8 % (0.0-12.0); Neutrophils # (auto) 8.9 uL; Neutrophils % (auto) 72.2 % (37.0-80.0); Platelet Count (auto) 114 10^3/uL (140-450); Red Blood Cells 3.93 10^6/uL (4.0-5.20); White Blood Cell 12.3 10^3/uL (4.4-10.8)
[2019-10-27 08:48] LABS: Calcium 9.2 mg/dL (8.5-10.1); Potassium 3.1 mmol/L (3.5-5.1)
[2019-10-27 08:49] LABS: INR 1.2 (0.9-1.15); Partial Thromboplastin Time 29.1 sec (23.64-32.05)
[2019-10-27 08:54] LABS: BUN/Creatinine Ratio 42.4; Bilirubin, Total 2.8 mg/dL (0.2-1.0); Total Protein 7.8 g/dL (6.4-8.2)
[2019-10-27 10:05] LABS: Urine Bacteria NONE SEEN /hpf (None Seen); Urine Blood Negative /uL (Negative); Urine Hyaline Cast FEW /lpf (0 - 2); Urine Specific Gravity 1.011 (1.001-1.035); Urine WBC <1 /hpf (0 - 5)
[2019-10-27] MEDS ORDERED: ACETAMINOPHEN 500 MG TAB PO ONE (11:00)
[2019-10-27] MEDS: D5W/SOD CHL 0.45%/KCL 20MEQ 1,000 ML IV SCH ×2 (13:00→17:35)
[2019-10-27] MEDS ORDERED: NITROGLYCERIN 0.4 MG SL TAB SL PRN (13:00)
[2019-10-27] MEDS: DOXYCYCLINE 100MG/250ML 250 ML IV SCH (13:00)
--- NOTE | 2019-10-27 15:02 | NUR ---
Pt Arrived on Unit Pt arrived on unit via gurney from ED. Pt is a/ox4 with no s/s of distress or SOB. Pt on bed rest. Pt placed on 2 L NC. Pat is patent, free of kinks and draining to gravity. Safety measures maintained with call light within reach, bed in lowest position and side rails up. Will continue to monitor for changes q1hr and prn.
[2019-10-27 16:11] VITALS: BP 104/49
--- NOTE | 2019-10-27 19:30 | NUR ---
Opening Shift Note Assumed care of patient, awake, AAOx4. No S/S of distress/SOB or pain. On 2L oxygen via nasal cannula. On bedrest, klein catheter patent and draining to gravity. Bed in lowest locked position, side rails up x2, call light within reach. Instructed on POC and to call for assist PRN, will continue to monitor for changes Q1hr and PRN.
[2019-10-27 20:00] VITALS: BP 117/53
[2019-10-27] MEDS: FAMOTIDINE (10MG/ML) 2ML VL IV SCH (21:46)
[2019-10-27] MEDS: HYDROcodone-ACET 5/325MG TAB PO PRN (21:46)
[2019-10-27 22:00] VITALS: BP 117/53
[2019-10-28] VITALS (7 sets, daily range): BP systolic 110–139; BP diastolic 51–70
[2019-10-28] MEDS: DOXYCYCLINE 100MG/250ML 250 ML IV SCH ×2 (01:12→13:38)
[2019-10-28] MEDS ORDERED: LEVOTHYROXINE SODIUM 25 MCG TAB PO SCH (07:00)
--- NOTE | 2019-10-28 07:30 | NUR ---
Opening Shift Note Assumed care of patient, who is alert and oriented x4. No S/S of distress/SOB or pain. Pat catheter system is intact, hanging below bladder, and draining to gravity. Bed is low, locked with 2x side rails up. Call light is within reach. Instructed on POC and to call for assist PRN, will continue to monitor for changes Q1hr and PRN.
--- NOTE | 2019-10-28 07:45 | NUR ---
Respiratory Culture Advised patient that a respiratory culture needs to be obtained. Patient stated she does not have a cough/phlegm at the moment.
[2019-10-28] MEDS: D5W/SOD CHL 0.45%/KCL 20MEQ 1,000 ML IV SCH ×2 (09:00→18:41)
[2019-10-28] MEDS: FAMOTIDINE (10MG/ML) 2ML VL IV SCH ×2 (09:42→21:44)
[2019-10-28] MEDS: AMIODARONE HCL 200 MG TAB PO SCH (09:42)
[2019-10-28] MEDS: [UNRECOGNIZED DRUG - REMARK] PO SCH (09:43)
[2019-10-28] MEDS ORDERED: GABAPENTIN 100 MG CAP PO SCH (10:00)
[2019-10-28] MEDS ORDERED: POTASSIUM EFFERVESENT TAB 25 MEQ GT ONE (10:00)
[2019-10-28] MEDS ORDERED: POTASSIUM EFFERVESENT TAB 25 MEQ GT SCH (10:00)
--- NOTE | 2019-10-28 10:49 | NUR ---
Home medications Asked patient for a current list and she stated for me to call [facility] to get an accurate list. Spoke with staff at [facility] and they will be faxing over a current list of home medications.
--- NOTE | 2019-10-28 11:18 | NUR ---
Paged Dr. Tang To clarify potassium that was ordered as well as to ask about resuming current home medications. Waiting for call back.
[2019-10-28] MEDS ORDERED: FURO40TA4 PO (11:24)
[2019-10-28] MEDS ORDERED: GABA300C10 PO (11:25)
[2019-10-28] MEDS ORDERED: LOSA-39 PO (11:27)
[2019-10-28] MEDS ORDERED: LEVO125T7 PO (11:27)
[2019-10-28] MEDS ORDERED: POTA-180 PO (11:28)
[2019-10-28] MEDS ORDERED: POTASSIUM EFFERVESENT TAB 25 MEQ PO ONE (12:15)
--- NOTE | 2019-10-28 12:18 | NUR ---
Received call back New orders received/carried out to resume patient home medications. Will continue care.
--- NOTE | 2019-10-28 14:10 | NUR ---
Dr. Clyde sam. Updated patient on POC. Let her know that she has an infection so she will be here for a couple of days. This nurse also needed clarification on medications. Patient has home medication Metoprolol 25 mg PO daily and also has Amiodarone 200 mg PO daily. Per eMar these two medications may cause interactions. Per. Dr. Tang okay to schedule and give Metoprolol.
[2019-10-28] MEDS ORDERED: MET50T PO (14:23)
[2019-10-28] MEDS ORDERED: METO25TA5 PO (14:23)
[2019-10-28] MEDS: FUROSEMIDE 40 MG TAB PO SCH (21:45)
[2019-10-28] MEDS: HYDROcodone-ACET 5/325MG TAB PO PRN (21:45)
[2019-10-29] VITALS (7 sets, daily range): BP systolic 97–138; BP diastolic 52–75
[2019-10-29] MEDS: DOXYCYCLINE 100MG/250ML 250 ML IV SCH ×2 (00:59→12:40)
[2019-10-29] MEDS: D5W/SOD CHL 0.45%/KCL 20MEQ 1,000 ML IV SCH (05:03)
[2019-10-29] MEDS: LEVOTHYROXINE SODIUM 50 MCG TAB PO SCH (06:37)
--- NOTE | 2019-10-29 07:30 | NUR ---
Opening Shift Note Assumed care of patient, who is alert and oriented x4. No S/S of distress/SOB or pain. Oxygen at 2L via nasal cannula. Pat catheter system is intact, hanging below bladder, and draining to gravity. Bed is low, locked with 2x side rails up. Call light is within reach. Instructed on POC and to call for assist PRN, will continue to monitor for changes Q1hr and PRN.
--- NOTE | 2019-10-29 08:25 | NUR ---
VQ Scan Patient taken by Nuclear medicine for ordered VQ scan. No distress noted on departure.
--- NOTE | 2019-10-29 08:50 | NUR ---
Patient back from VQ Scan No distress noted upon return. Will continue to monitor.
[2019-10-29] MEDS ORDERED: GABAPENTIN 300 MG CAP PO ONE (10:00)
[2019-10-29] MEDS: [UNRECOGNIZED DRUG - REMARK] PO SCH (10:00)
[2019-10-29] MEDS: FAMOTIDINE (10MG/ML) 2ML VL IV SCH ×2 (10:39→21:52)
[2019-10-29] MEDS: LOSARTAN POTASSIUM 50 MG TAB PO SCH (10:39)
[2019-10-29] MEDS: AMIODARONE HCL 200 MG TAB PO SCH (10:40)
[2019-10-29] MEDS: FUROSEMIDE 40 MG TAB PO SCH (10:40)
[2019-10-29] MEDS: GABAPENTIN 100 MG CAP PO SCH (10:40)
[2019-10-29] MEDS: POTASSIUM EFFERVESENT TAB 25 MEQ PO SCH (10:41)
[2019-10-29 11:08] LABS: Basophils # (auto) 0 uL; Eosinophils # (auto) 0.2 uL; Lymphocytes # (auto) 1.3 uL; Monocytes # (auto) 0.5 uL; Neutrophils # (auto) 2.9 uL
[2019-10-29 11:09] LABS: Basophils % (auto) 0.8 % (0.0-2.0); Hematocrit 41.8 % (36.0-46.0); Hemoglobin 14.4 g/dL (12.2-16.2); Lymphocytes % (auto) 26.7 % (10.0-50.0); Mean Corpuscular Hemoglobin 35.9 pg (28.0-32.0); Mean Corpuscular Hgb Conc. 34.5 g/dL (32.0-36.0); Mean Corpuscular Volume 104.1 fL (80.0-100.0); Monocytes % (auto) 9.8 % (0.0-12.0); Neutrophils % (auto) 57.7 % (37.0-80.0); Nucleated Red Blood Cells % 0.1 %; Platelet Count (auto) 92 10^3/uL (140-450); Red Blood Cells 4.02 10^6/uL (4.0-5.20); Red Cell Distribution Width 15.3 % (11.8-14.3)
[2019-10-29 11:27] LABS: Albumin 2.7 g/dL (3.4-5.0); Calcium 8.7 mg/dL (8.5-10.1); Potassium 3.3 mmol/L (3.5-5.1)
[2019-10-29 11:31] LABS: BUN/Creatinine Ratio 29.6; Total Protein 7.4 g/dL (6.4-8.2)
[2019-10-29] MEDS: METOPROLOL TARTRATE 25 MG TAB PO SCH (12:35)
[2019-10-29] MEDS ORDERED: POTASSIUM EFFERVESENT TAB 25 MEQ PO ONE (14:15)
--- NOTE | 2019-10-29 15:56 | NUR ---
Dr. Clyde Baez Updated on POC. New orders received/carried out.
[2019-10-29] MEDS ORDERED: FLEET ENEMA(ADULT) 135 ML PR ONE (17:45)
[2019-10-29] MEDS ORDERED: LACTULOSE 20Gm/30ML SOLN PO PRN ×2 (18:00)
[2019-10-29] MEDS: FUROSEMIDE 20 MG TAB PO SCH (18:02)
--- NOTE | 2019-10-29 18:30 | NUR ---
Fleet enema Fleet enema administered. Patient tolerated well. Large bowel movement noted.
--- NOTE | 2019-10-29 19:20 | NUR ---
Opening Note pt A&O x4. pt does not show any s/s of distress or discomfort. respirations are even and nonlabored. bed rails x2, and bed in low and locked position. 20g to the left hand saline flush. klein catheter in place for immobility. pt does not report any pain at this time. call light is within reach. pt is on bedrest, and will require mod to max assist. pt does not express any needs at this time.
[2019-10-29] MEDS: LEVALBUTEROL HCL 1.25 MG/3 ML NEB NEB SCH (19:30)
--- NOTE | 2019-10-30 00:04 | NUR ---
Family update Received call from jonathan Orellana. Esteban delivered appropriate password. An update regarding patient vital signs were given.
[2019-10-30] MEDS: DOXYCYCLINE 100MG/250ML 250 ML IV SCH ×2 (01:17→13:00)
--- NOTE | 2019-10-30 01:50 | NUR ---
pt reported having a burning sensation at left hand where abx was being administered. pt did not want the administration to continue. abx was discontinued, iv was flushed and remains patent. will continue to monitor.
--- NOTE | 2019-10-30 04:05 | NUR ---
pt found attempting to get out of bed. pt seems to be in a confused state, and wanted to "walk with a kitchen chair". patient was reoriented to the unit. pt was positioned supine in bed with head elevated. pt concerned about going home. pt was educated on the discharge process. will continue to monitor
[2019-10-30 05:28] VITALS: BP 109/72
[2019-10-30] MEDS: FUROSEMIDE 20 MG TAB PO SCH ×2 (06:00→17:31)
[2019-10-30] MEDS: LEVALBUTEROL HCL 1.25 MG/3 ML NEB NEB SCH (06:16)
[2019-10-30] MEDS: LEVOTHYROXINE SODIUM 50 MCG TAB PO SCH (06:35)
--- NOTE | 2019-10-30 08:00 | NUR ---
Opening Shift Note Assumed care of patient, awake, alert and oriented X1, to self only. Tele# 13, sinus rhythm @ 71 bpm. IV to left hand, 20 gauge, patent and saline locked. Urethral Pat catheter draining clear, yellow urine to gravity. No S/S of distress/SOB or pain. Instructed on POC and to call for assist PRN, verbalized understanding, but requires frequent reminding and re-orienting. Bed locked, in lowest position, call light within reach, will continue to monitor for changes Q1hr and PRN.
[2019-10-30 09:00] VITALS: BP 96/66
[2019-10-30] MEDS: [UNRECOGNIZED DRUG - REMARK] PO SCH (10:00)
[2019-10-30] MEDS: LOSARTAN POTASSIUM 50 MG TAB PO SCH (10:00)
[2019-10-30] MEDS: FAMOTIDINE (10MG/ML) 2ML VL IV SCH (10:00)
[2019-10-30] MEDS: METOPROLOL TARTRATE 25 MG TAB PO SCH (10:00)
[2019-10-30] MEDS: POTASSIUM EFFERVESENT TAB 25 MEQ PO SCH (11:16)
[2019-10-30] MEDS: GABAPENTIN 100 MG CAP PO SCH (11:16)
[2019-10-30] MEDS: AMIODARONE HCL 200 MG TAB PO SCH (11:17)
[2019-10-30 13:00] VITALS: BP 102/47
--- NOTE | 2019-10-30 14:22 | NUR ---
ROUNDS Dr Tang at bedside for rounds, new orders received and followed through. Patient updated on plan of care, verbalized understanding.
--- NOTE | 2019-10-30 14:45 | NUR ---
FAMILY Call placed to Karol, patients daughter and point of contact, message left on voicemail, informing patient has been discharged and needs transportation. Call Placed to Ramos, patient's son, informed him of the above, verbalized he is in [place] and unable to pick patient up but will try to get in contact with Karol.
--- NOTE | 2019-10-30 16:45 | NUR ---
FAMILY Second call placed to Karol, patient's daughter. Informed her patient has been discharged and needs a ride back to [employer]. Patient's daughter stated, "I am out of town, people have lives you know". Informed the hospital is not responsible for transportation, verbalized understanding. Informed to please call me back and keep me updated. Awaiting return call. Patient updated on the above, verbalized understanding.
--- NOTE | 2019-10-30 16:45 | NUR ---
Darinel Hsu RN, Charge nurse of the above note, verbalized understanding.
[2019-10-30 17:00] VITALS: BP 106/52
--- NOTE | 2019-10-30 18:35 | NUR ---
FAMILY Call received from Karol, patient's daughter. Verbalized she will have her daughter and daughters boyfriend pick patient up and they will be here in 1.5 hours.
--- NOTE | 2019-10-30 19:05 | NUR ---
OPENING NOTE pt sitting in bedside chair. pt requested to get back in bed. pt was transferred back into bed with moderate assist. pt iv d/c at this time. pt is alert. resp is even and nonlabored. pt is not in any pain or discomfort. pt is on room air. call light within reach. bed in low locked position.
--- NOTE | 2019-10-30 19:26 | NUR ---
Care endorsed to BRITTANY Mckeon, night nurse.
--- NOTE | 2019-10-30 20:43 | NUR ---
Discharge instructions given as ordered. Encourage to follow up with PMD as instructed. All questions and concerns addressed. Patient verbalized understanding. Medication reconciliation form completed and copy given to patient. IV removed with catheter intact, pressure dressing applied, klein catheter removed. Telemetry unit returned to ICU. Patient taken to vehicle via wheelchair with all personal belongings, accompanied by staff and family member via wheelchair. pt is stable upon discharge. Vibriomycin information given to charge David to call in to pharmacy in the am. No distress noted at time of departure.
--- NOTE | 2019-10-31 10:04 | NUR ---
Prescription for Vibramycin 100 mg BID X3 days called into [facility] @ [phone], spoke to Thais. Patient's daughter Karol briceño and [facility].
== END 2019-10-30 20:40 | disposition home health service (06) | DRG 871 ==
LOC: EDBD 07:55 → ER 07:55 → TELE 07:56 → TELE-EAST 15:12
PROVIDERS: ADMIT Nurse Practitioner Acute Care; ATTEND Internal Medicine Cardiovascular Disease
DX: A41.9 Sepsis, unspecified organism (principal); N17.0 Acute kidney failure with tubular necrosis; E44.0 Moderate protein-calorie malnutrition; J98.11 Atelectasis; I50.32 Chronic diastolic (congestive) heart failure; D68.59 Other primary thrombophilia; I13.0 Hypertensive heart and chronic kidney disease with heart failure and stage 1 through stage 4 chronic kidney disease, or unspecified chronic kidney disease; E87.6 Hypokalemia; E66.9 Obesity, unspecified; G62.9 Polyneuropathy, unspecified; M19.90 Unspecified osteoarthritis, unspecified site; N18.3 Chronic kidney disease, stage 3 (moderate); E78.5 Hyperlipidemia, unspecified; D75.89 Other specified diseases of blood and blood-forming organs; I48.91 Unspecified atrial fibrillation; E03.9 Hypothyroidism, unspecified; Z79.01 Long term (current) use of anticoagulants; Z95.0 Presence of cardiac pacemaker; Z79.899 Other long term (current) drug therapy; Z80.51 Family history of malignant neoplasm of kidney; Z80.8 Family history of malignant neoplasm of other organs or systems; Z82.5 Family history of asthma and other chronic lower respiratory diseases; Z68.35 Body mass index [BMI] 35.0-35.9, adult
CPT/HCPCS: 36415; 51702; 71045; 78582; 80053; 81001; 83605; 83735; 83880; 84443; 84484; 85025; 85379; 85610; 85730; 87040; 93005; 94640; 97110; 97116; 97530; G0378; J3490

== ENCOUNTER 2020-08-25 15:59 | Inpatient (IN) | payer MEDICARE, OTHER ==
[~2020-08-25] VITALS: Ht 162.6 cm; Wt 90.1 kg
[~2020-08-25 15:59] MED LIST changes: -APIX5TAB OR; -CELE200C PO; -FURO1TAB31 PO; +FURO40TA4 PO; -GABA100C9 PO; +GABA300C10 PO; +LEVO125T7 PO; -LEVO25TA49 PO; +LOSA-39 PO; -LOSA25TA38 PO; -MET25T PO; +METO25TA5 PO; +POTA-180 PO; -POTA10TA51 PO; -PROP80CA40 PO
[2020-08-25 16:58] LABS: Basophils # (auto) 0.1 10 ^3/uL (0-0.2); Eosinophils # (auto) 0.2 10 ^3/uL (0-0.8); Hemoglobin 13.4 g/dL (12.2-16.2); Lymphocytes # (auto) 2.4 10 ^3/uL (0.4-5.4); Monocytes # (auto) 0.6 10 ^3/uL (0-1.3); Neutrophils # (auto) 2.4 10 ^3/uL (1.6-8.6)
[2020-08-25 17:00] LABS: Eosinophils % (auto) 3.7 % (0.0-7.0); Hematocrit 39.4 % (36.0-46.0); Lymphocytes % (auto) 41.7 % (10.0-50.0); Mean Corpuscular Hemoglobin 36.1 pg (28.0-32.0); Mean Corpuscular Volume 106.1 fL (80.0-100.0); Monocytes % (auto) 10.9 % (0.0-12.0); Neutrophils % (auto) 42.7 % (37.0-80.0); Nucleated Red Blood Cells % 0.2 %; Platelet Count (auto) 116 10^3/uL (140-450); Red Blood Cells 3.71 10^6/uL (4.0-5.20); Red Cell Distribution Width 17.3 % (11.8-14.3); White Blood Cell 5.7 10^3/uL (4.4-10.8)
[2020-08-25 17:17] LABS: Albumin 2.4 g/dL (3.4-5.0); Calcium 8.4 mg/dL (8.5-10.1); Magnesium 2.5 mg/dL (1.6-2.6)
[2020-08-25 17:18] LABS: Lactic Acid w/Reflex 2.1 mmol/L (0.4-2.0)
[2020-08-25 17:24] LABS: BUN/Creatinine Ratio 24.6; Bilirubin, Total 3.1 mg/dL (0.2-1.0); CRP High Sensitivity 1.1 mg/dL (< 0.3); Total Protein 7.1 g/dL (6.4-8.2)
[2020-08-25 17:45] LABS: Potassium 2.7 mmol/L (3.5-5.1)
[2020-08-25 18:33] LABS: Urine Bacteria NONE SEEN /hpf (None Seen); Urine Blood Negative /uL (Negative); Urine Budding Yeast MODERATE /hpf (None Seen); Urine Hyaline Cast MANY /lpf (0 - 2); Urine Mucus FEW (None Seen); Urine WBC 4 /hpf (0 - 5)
[2020-08-25] MEDS: POTASSIUM CHL 20MEQ/100ML 100 ML IV SCH ×2 (19:17→21:58)
[2020-08-25] MEDS ORDERED: NOREPINEPHRINE 8 MG/250ML KIT 250 ML IV SCH (22:15)
[2020-08-25] MEDS ORDERED: PIPERACILLIN-TAZOB 3.375GM 100 ML IV ONE (22:15)
[2020-08-25] MEDS ORDERED: SODIUM CHLORIDE 0.9% 1,000 ML IV ONE (22:15)
[2020-08-25] MEDS ORDERED: SODIUM CHLORIDE 0.9% 1,750 ML IV ONE (22:30)
[2020-08-25] MEDS ORDERED: ONDANSETRON HCL 4 MG/2 ML VIAL IV PRN (23:30)
[2020-08-25] MEDS ORDERED: ACETAMINOPHEN 325 MG TAB PO PRN (23:30)
[2020-08-25] MEDS ORDERED: DOCUSATE SOD 100 MG CAP PO PRN (23:30)
[2020-08-25] MEDS ORDERED: MORPHINE SULF INJ 2 MG/ML SYRINGE 1ML IV PRN (23:30)
[2020-08-25] MEDS ORDERED: NITROGLYCERIN 0.4 MG SL TAB SL PRN (23:30)
[2020-08-25] MEDS ORDERED: HYDROcodone-ACET 5/325MG TAB PO PRN (23:30)
[2020-08-26] VITALS (7 sets, daily range): BP systolic 104–121; BP diastolic 47–73
--- NOTE | 2020-08-26 03:05 | NUR ---
Telemetry admit from ER MAYKEL LANDRY admitted to Telemetry unit after SBAR received. Patient oriented to primary RN, unit, room, bed, and unit policies regarding patient care and visiting hours. Patient now on continuous telemetry monitoring, tele box #79 and telemetry reading on arrival to unit is SR 73 BPM. Fall and safety precautions in place. Patient weighed by bedscale and encouraged to call if she needs something. Call light within reach. All questions and concerns addressed, patient in agreement. Will continue to monitor q1h and prn.
[2020-08-26] MEDS: PIPERACILLIN-TAZOB 2.25GM 50 ML IV SCH ×3 (05:28→21:07)
[2020-08-26] MEDS: SODIUM CHLOR 0.9% PF (SALINE LOCK) 10ML VIAL/SYR IV SCH ×3 (05:28→21:07)
[2020-08-26] MEDS: LEVOTHYROXINE SODIUM 50 MCG TAB PO SCH (06:09)
[2020-08-26] MEDS ORDERED: GABA300C10 PO (06:29)
[2020-08-26] MEDS ORDERED: LOSA-39 PO (06:29)
[2020-08-26] MEDS ORDERED: AMIO200T33 PO (06:29)
[2020-08-26] MEDS ORDERED: FURO40TA4 PO (06:29)
[2020-08-26] MEDS ORDERED: MULT1TAB95 PO (06:29)
[2020-08-26] MEDS ORDERED: LOVA20TA4 PO (06:29)
[2020-08-26] MEDS ORDERED: LEVO125T7 PO (06:29)
[2020-08-26] MEDS ORDERED: METO25TA5 PO (06:29)
[2020-08-26] MEDS ORDERED: POTA10TA51 PO (06:29)
[2020-08-26] MEDS ORDERED: HYDR-4833 PO (06:29)
--- NOTE | 2020-08-26 08:00 | NUR ---
Opening Shift Note Assumed care of patient, awake and alert. No S/S of distress/SOB or pain. Instructed on POC and to call for assist PRN, will continue to monitor for changes Q1hr and PRN. Bed locked in lowest position with two side rails up and call light in reach.
[2020-08-26 09:09] LABS: Nucleated Red Blood Cells % 0.2 %
[2020-08-26 09:11] LABS: Basophils # (auto) 0.1 10 ^3/uL (0-0.2); Basophils % (auto) 1.2 % (0.0-2.0); Eosinophils # (auto) 0.2 10 ^3/uL (0-0.8); Eosinophils % (auto) 3.3 % (0.0-7.0); Hematocrit 36.5 % (36.0-46.0); Hemoglobin 12.4 g/dL (12.2-16.2); Lymphocytes # (auto) 1.5 10 ^3/uL (0.4-5.4); Lymphocytes % (auto) 32.6 % (10.0-50.0); Mean Corpuscular Hemoglobin 36.2 pg (28.0-32.0); Mean Corpuscular Hgb Conc. 34.1 g/dL (32.0-36.0); Monocytes # (auto) 0.4 10 ^3/uL (0-1.3); Monocytes % (auto) 9.2 % (0.0-12.0); Neutrophils # (auto) 2.5 10 ^3/uL (1.6-8.6); Neutrophils % (auto) 53.7 % (37.0-80.0); Platelet Count (auto) 101 10^3/uL (140-450); Red Blood Cells 3.44 10^6/uL (4.0-5.20); Red Cell Distribution Width 17.2 % (11.8-14.3); White Blood Cell 4.7 10^3/uL (4.4-10.8)
[2020-08-26 09:31] LABS: Albumin 2.2 g/dL (3.4-5.0)
[2020-08-26 09:35] LABS: BUN/Creatinine Ratio 26.6; Bilirubin, Total 2.9 mg/dL (0.2-1.0); Total Protein 6.6 g/dL (6.4-8.2)
[2020-08-26 09:40] LABS: Potassium 2.6 mmol/L (3.5-5.1)
[2020-08-26] MEDS: ZINC SULFATE 220mg CAP or TAB PO SCH (10:00)
[2020-08-26] MEDS: FUROSEMIDE 40 MG/4 ML VIAL IV SCH (10:00)
[2020-08-26] MEDS ORDERED: POTASSIUM CHLORIDE 40 MEQ, LIDOCAINE 1% (LOCAL ANESTH.) 4 ML in SODIUM CHL 0.9% 250 ML IV ONE (10:30)
[2020-08-26] MEDS ORDERED: POTASSIUM EFFERVESENT TAB 25 MEQ PO ONE (10:30)
--- NOTE | 2020-08-26 11:00 | NUR ---
NOTIFIED PHARMACY OF ZINC NOT AVAILABLE. PER PHARMACY THEY WILL REFRESH PIXIS.
--- NOTE | 2020-08-26 11:19 | NUR ---
Nutrition Assessment Notes Please refer to link for full assessment notes. Est Energy needs: [id number] kcals (17-20 kcal/kgBW) Est Protein needs: 51-64 gms/day (0.6-0.75 gm/kgBW) d/t Stg 3 CKF Will continue to monitor and reassess prn. Addendum: 08/26/20 at [address] Amended: Links added.
--- NOTE | 2020-08-26 11:20 | NUR ---
WOUND CARE NOTE: IN TO SEE PATIENT AT THIS TIME PER WOUND CARE CONSULT REQUEST. PATIENT NOTED TO HAVE WOUNDS UPON ADMIT, WOUND PHOTOS TAKEN AT THAT TIME BY BEDSIDE NURSE. PATIENT ADMITTED TO [facility] WITH DIAGNOSIS OF SEPSIS. SHE HAS CURRENT EDER SCORE OF 12. PATIENT NOTED TO BE MAX ASSIST FOR HER ADL'S, INCLUDING TURNING/REPOSITIONING. PATIENT HAS MULTIPLE WOUNDS, INCLUDING INTACT DTI'S TO BILATERAL HEELS AND SACRUM/BUTTOCKS. SHE ALSO HAS A 2 X 1 STG 3 PRESSURE INJURY NOTED TO MEDIAL SACRUM. APPLIED THERAHONEY, REAPPLIED MEPILEX SACRAL DRESSING. RECOMMEND: FREQUENT TURN SCHEDULE Q 2 HOURS,PRN CONDITION PERMITS, WITH PRESSURE REDISTRIBUTION USING PILLOWS/WEDGES, DAILY/PRN DRESSING CHANGE TO SACRAL WOUND, JOES FOAM BOOTS, SPECIALTY AIR MATTRESS (ORDERED), DIETARY CONSULT, SKIN/WOUND CARE PLAN, CONTINUED MONITORING BY WOUND CARE TEAM. Addendum: 08/26/20 at 1545 by Gabriella Ortega RN Amended: Links added.
[2020-08-26] MEDS ORDERED: HEPARIN SODIUM (PORCINE) 5000 UNITS/ML 1ML VIAL ONE (11:35)
[2020-08-26] MEDS: MULTIPLE VITAMIN TAB PO SCH (11:52)
[2020-08-26] MEDS: POTASSIUM CHL 20 Meq TABLET PO SCH (11:53)
[2020-08-26] MEDS: ASCORBIC ACID 500 MG TAB PO SCH ×2 (11:53→21:08)
[2020-08-26] MEDS: FAMOTIDINE 20 MG TAB PO SCH ×2 (11:53→21:07)
[2020-08-26] MEDS: HEPARIN SODIUM (PORCINE) 5000 UNITS/ML 1ML VIAL SC SCH ×2 (12:00→21:09)
--- NOTE | 2020-08-26 12:50 | NUR ---
MEDICATION ZINCE STILL NOT AVAILABLE.
--- NOTE | 2020-08-26 13:00 | NUR ---
LASIX 40 MG IV HELD. BP 104/47 DR GOTTI NOTIFIED. PER DR ANA MARÍA CASTRO TO HOLD.
--- NOTE | 2020-08-26 19:30 | NUR ---
Opening Shift Note Assumed care of patient, eyes open to name. No S/S of distress/SOB/pain. Fall and safety precautions in place. Instructed on POC and to call for assist PRN, patient verbalized understanding and in agreement. Call light within reach. Will continue to monitor for changes Q1hr and PRN.
--- NOTE | 2020-08-26 22:45 | NUR ---
SPECIALTY MATTRESS PATIENT TRANSFERRED SAFELY TO SPECIALTY MATTRESS WITH NO S/S OF DISTRESS/INJURY. PATIENT STATES HER COMFORT LEVEL IMPROVED. WILL CONTINUE TO MONITOR.
[2020-08-27 05:00] VITALS: BP 103/52
[2020-08-27] MEDS: SODIUM CHLOR 0.9% PF (SALINE LOCK) 10ML VIAL/SYR IV SCH ×3 (06:00→22:42)
[2020-08-27] MEDS: PIPERACILLIN-TAZOB 2.25GM 50 ML IV SCH ×3 (06:01→22:42)
[2020-08-27] MEDS: LEVOTHYROXINE SODIUM 50 MCG TAB PO SCH (06:01)
--- NOTE | 2020-08-27 07:00 | NUR ---
OPENING SHIFT NOTE RECEIVED REPORT ON THE PATIENT. SLEEPING IN BED. PATIENT SHOWS NO SIGNS OF DISTRESS AT THIS TIME. WOKE THE PATIENT UP AND DISCUSSED THE PLAN OF CARE WITH THE PATIENT. PATIENT WAS A&O X1 AND COULD NOT ANSWER MY QUESTIONS. BED IN LOWEST POSITION, SIDE RAILS UP X2, AND THE CALL LIGHT IS WITHIN REACH.
[2020-08-27 09:00] VITALS: BP 102/71
[2020-08-27] MEDS: FUROSEMIDE 40 MG/4 ML VIAL IV SCH (10:00)
[2020-08-27] MEDS: ZINC SULFATE 220mg CAP or TAB PO SCH (10:00)
[2020-08-27] MEDS: ASCORBIC ACID 500 MG TAB PO SCH ×2 (10:59→22:00)
[2020-08-27] MEDS: FAMOTIDINE 20 MG TAB PO SCH ×2 (10:59→22:45)
[2020-08-27] MEDS: POTASSIUM CHL 20 Meq TABLET PO SCH (10:59)
[2020-08-27] MEDS: MULTIPLE VITAMIN TAB PO SCH (10:59)
[2020-08-27] MEDS: HEPARIN SODIUM (PORCINE) 5000 UNITS/ML 1ML VIAL SC SCH ×2 (11:03→22:56)
--- NOTE | 2020-08-27 12:18 | NUR ---
DR GOTTI AT THE BEDSIDE. NEW ORDERS RECEIVED.
[2020-08-27 13:00] VITALS: BP 102/50
[2020-08-27] MEDS ORDERED: POTASSIUM CHLORIDE 80 MEQ, LIDOCAINE 1% (LOCAL ANESTH.) 6 ML in SODIUM CHL 0.9% 500 ML IV ONE (13:30)
[2020-08-27 14:22] LABS: Basophils # (auto) 0.1 10 ^3/uL (0-0.2); Basophils % (auto) 1.1 % (0.0-2.0); Eosinophils # (auto) 0.2 10 ^3/uL (0-0.8); Eosinophils % (auto) 3.1 % (0.0-7.0); Hematocrit 34.1 % (36.0-46.0); Hemoglobin 11.6 g/dL (12.2-16.2); Lymphocytes # (auto) 1.7 10 ^3/uL (0.4-5.4); Lymphocytes % (auto) 32.1 % (10.0-50.0); Mean Corpuscular Hemoglobin 35.9 pg (28.0-32.0); Mean Corpuscular Hgb Conc. 34.1 g/dL (32.0-36.0); Mean Corpuscular Volume 105.2 fL (80.0-100.0); Monocytes # (auto) 0.7 10 ^3/uL (0-1.3); Monocytes % (auto) 13.6 % (0.0-12.0); Neutrophils # (auto) 2.6 10 ^3/uL (1.6-8.6); Neutrophils % (auto) 50.1 % (37.0-80.0); Nucleated Red Blood Cells % 0.2 %; Platelet Count (auto) 111 10^3/uL (140-450); Red Blood Cells 3.24 10^6/uL (4.0-5.20); Red Cell Distribution Width 17.1 % (11.8-14.3); White Blood Cell 5.2 10^3/uL (4.4-10.8)
[2020-08-27 14:39] LABS: Albumin 2.1 g/dL (3.4-5.0); Calcium 8.1 mg/dL (8.5-10.1)
--- NOTE | 2020-08-27 14:39 | NUR ---
PAGED DR GOTTI WITH THE RESULTS OF THE ABG. AWAITING A CALL BACK
[2020-08-27 14:43] LABS: BUN/Creatinine Ratio 21.7; Bilirubin, Total 3.2 mg/dL (0.2-1.0); Total Protein 6.1 g/dL (6.4-8.2)
[2020-08-27 14:46] LABS: Potassium 2.5 mmol/L (3.5-5.1)
--- NOTE | 2020-08-27 14:56 | NUR ---
RECEIVED A CALL BACK FROM DR GOTTI. NEW ORDERS RECEIVED.
--- NOTE | 2020-08-27 15:10 | NUR ---
IV insertion IV access obtained, via clean sterile technique by inserting 20 gauge catheter at the right hand after 1 attempt(s). IV secured properly. No trauma to site. Patient tolerated well.
[2020-08-27 17:00] VITALS: BP 100/51
[2020-08-27 22:00] VITALS: BP 99/58
[2020-08-28 05:00] VITALS: BP 130/56
[2020-08-28] MEDS: SODIUM CHLOR 0.9% PF (SALINE LOCK) 10ML VIAL/SYR IV SCH ×3 (06:00→21:48)
[2020-08-28] MEDS: PIPERACILLIN-TAZOB 2.25GM 50 ML IV SCH ×3 (06:00→18:52)
[2020-08-28] MEDS: LEVOTHYROXINE SODIUM 50 MCG TAB PO SCH (08:00)
--- NOTE | 2020-08-28 08:00 | NUR ---
Opening Shift Note Assumed care of patient, awake and alert X3. No S/S of distress/SOB or pain. Patient Klein Catheter was found to be out. When asked patient what happened, patient states "I don't know." New klein catheter inserted using clean and sterile tequniquies. Back hung bellow bladder, klein draining clear yellow urine. Instructed patient on POC and to call for assist PRN, will continue to monitor for changes Q1hr and PRN.
[2020-08-28 09:00] VITALS: BP 124/57
[2020-08-28] MEDS: ASCORBIC ACID 500 MG TAB PO SCH ×2 (10:00→21:49)
[2020-08-28] MEDS: POTASSIUM CHL 20 Meq TABLET PO SCH (10:43)
[2020-08-28] MEDS: ZINC SULFATE 220mg CAP or TAB PO SCH (10:43)
[2020-08-28] MEDS: FUROSEMIDE 40 MG/4 ML VIAL IV SCH (10:43)
[2020-08-28] MEDS: MULTIPLE VITAMIN TAB PO SCH (10:44)
[2020-08-28] MEDS: FAMOTIDINE 20 MG TAB PO SCH ×2 (10:44→21:49)
[2020-08-28] MEDS: HEPARIN SODIUM (PORCINE) 5000 UNITS/ML 1ML VIAL SC SCH ×2 (10:44→21:50)
[2020-08-28 13:00] VITALS: BP 114/65
--- NOTE | 2020-08-28 14:00 | NUR ---
VQ Scan VQ Scan postponed due to machine being down. Will cont to monitor patient.
[2020-08-28 16:39] VITALS: BP 133/59
--- NOTE | 2020-08-28 17:14 | NUR ---
MD Tang aware of patient's VQ scan being postponed due to computer being down. Awaiting new orders at this time.
[2020-08-28 21:00] VITALS: BP 105/62
[2020-08-29] MEDS: PIPERACILLIN-TAZOB 2.25GM 50 ML IV SCH ×3 (03:19→18:23)
[2020-08-29 05:00] VITALS: BP 117/69
[2020-08-29] MEDS: LEVOTHYROXINE SODIUM 50 MCG TAB PO SCH (06:36)
[2020-08-29] MEDS: SODIUM CHLOR 0.9% PF (SALINE LOCK) 10ML VIAL/SYR IV SCH ×3 (06:36→22:28)
--- NOTE | 2020-08-29 07:40 | NUR ---
IV Insertion; CT Chest 20G to L FA inserted. Notified radiology of IV access. Will continue to monitor.
--- NOTE | 2020-08-29 07:45 | NUR ---
Opening Note Assumed pt care from NOC RN. Pt is a/ox4 with no s/s of distress or SOB. PT is currently sitting upright in bed with no complaints at this time. Discussed POC with pt and pending CT angio of chest. Pat is present, free of kinks and is draining to gravity. Safety measures maintained with call light within reach, bed in lowest position and side rails up. Will continue to monitor for changes.
[2020-08-29] MEDS ORDERED: IOHEXOL 300 MG/ML 100ML BOTTLE IJ ONE (08:25)
[2020-08-29] MEDS ORDERED: IOHEXOL 350 MG/ML 100ML IJ ONE (08:26)
--- NOTE | 2020-08-29 08:30 | NUR ---
Pt Off Unit for CT Addendum: 08/29/20 at 0857 by REINA ZAIDI RN RN Pt back on unit.
[2020-08-29 09:00] VITALS: BP 101/60
[2020-08-29] MEDS: FUROSEMIDE 40 MG/4 ML VIAL IV SCH (09:24)
[2020-08-29] MEDS: POTASSIUM CHL 20 Meq TABLET PO SCH (09:24)
[2020-08-29] MEDS: MULTIPLE VITAMIN TAB PO SCH (09:24)
[2020-08-29] MEDS: ZINC SULFATE 220mg CAP or TAB PO SCH (09:24)
[2020-08-29] MEDS: ASCORBIC ACID 500 MG TAB PO SCH ×2 (09:25→22:29)
[2020-08-29] MEDS: HEPARIN SODIUM (PORCINE) 5000 UNITS/ML 1ML VIAL SC SCH ×2 (09:27→22:32)
[2020-08-29] MEDS: FAMOTIDINE 20 MG TAB PO SCH ×2 (09:31→22:28)
--- NOTE | 2020-08-29 11:36 | NUR ---
Nutrition Followup Note Wt 89.4 kg Pt was off the floor with no family by bedside. per pt records pt with severe hypokal correcting. pt is currently on cardiac diet with inadequate PO of 50% x 2 per RN doc Est Energy needs: 4171-8595 kcals (17-20 kcal/kgBW), Est Protein needs: 51-64 gms/day (0.6-0.75 gm/kgBW) d/t Stg 3 CKF. Will continue to monitor and reassess prn. Labs: BUN 26 H CREAT 1.20 H HIGINIO 3.2 H ALB 2.1 L BM: Pt had 1 BM today noted Skin: BS 17 mod risk, full details in healthcare advisory services manager note PES: 1) Inadequate oral intake aeb pt with 0% PO intake r/t pt is with a poor appetite 2) Altered nutrition related lab values aeb elev RFTs, elev LFTs, hypokalemia, hypocalcemia, hypoalbuminemia r/t current/chronic medical condition Comments: Will continue to monitor PO intake, skin status. F/u high 3-5 days Rec: 1) consider prostat 1 packet bid as RFT improve. 2) consider ensure Enlive 1 carton bid if PO continues to be low. 3) continue current plan of care
[2020-08-29 13:00] VITALS: BP 114/65
[2020-08-29 17:00] VITALS: BP 115/66
--- NOTE | 2020-08-29 17:23 | NUR ---
Pt is a alert and oriented female that is frail but able to make needs known. Pt sdtates she resides at [facility] and will be returning upon discharge. Pt state she has a daughter and a son who both help her . Her son, Ramos Segura, is her POA. Pt has a w/c and is on service with [employer]. No further SS concerns/needs. Addendum: 08/29/20 at 1725 by QUINN CHARLTON SS Amended: Links added.
--- NOTE | 2020-08-29 19:00 | NUR ---
Opening Shift Note Assumed care of patient, awake, confused. No S/S of distress/SOB or pain. Will continue to monitor for changes Q1hr and PRN.
[2020-08-29 22:00] VITALS: BP 116/67
--- NOTE | 2020-08-30 00:27 | NUR ---
Paged doctor Clyde regarding orders for lab- Potassium was replaced but never rechecked
--- NOTE | 2020-08-30 00:30 | NUR ---
Received and placed lab order in [facility].
[2020-08-30] MEDS: PIPERACILLIN-TAZOB 2.25GM 50 ML IV SCH ×3 (03:11→17:10)
[2020-08-30 05:00] VITALS: BP 114/59
[2020-08-30] MEDS: SODIUM CHLOR 0.9% PF (SALINE LOCK) 10ML VIAL/SYR IV SCH ×3 (06:50→21:50)
[2020-08-30] MEDS: LEVOTHYROXINE SODIUM 50 MCG TAB PO SCH (06:50)
[2020-08-30 07:19] LABS: BUN/Creatinine Ratio 15.2; Bilirubin, Total 2.8 mg/dL (0.2-1.0); Total Protein 6.1 g/dL (6.4-8.2)
[2020-08-30 07:22] LABS: Potassium 2.6 mmol/L (3.5-5.1)
[2020-08-30 09:00] VITALS: BP 109/89
[2020-08-30] MEDS: POTASSIUM CHL 20MEQ/100ML 100 ML IV SCH ×3 (09:57→14:38)
[2020-08-30] MEDS: POTASSIUM CHL 20 Meq TABLET PO SCH (09:58)
[2020-08-30] MEDS: FAMOTIDINE 20 MG TAB PO SCH ×2 (09:58→21:39)
[2020-08-30] MEDS: ZINC SULFATE 220mg CAP or TAB PO SCH (09:58)
[2020-08-30] MEDS: MULTIPLE VITAMIN TAB PO SCH (09:58)
[2020-08-30] MEDS: FUROSEMIDE 40 MG/4 ML VIAL IV SCH (09:58)
[2020-08-30] MEDS: ASCORBIC ACID 500 MG TAB PO SCH ×2 (09:58→21:39)
[2020-08-30] MEDS: HEPARIN SODIUM (PORCINE) 5000 UNITS/ML 1ML VIAL SC SCH ×2 (10:03→21:43)
--- NOTE | 2020-08-30 12:00 | NUR ---
HYGIENE CARE PROVIDED, WOUND CARE TO SACRUM COMPLETE. PT ON TURN Q2 SCHEDULE. CALL LIGHT WITHIN REACH. WILL CONTINUE TO MONITOR.
[2020-08-30 13:00] VITALS: BP 128/69
[2020-08-30 16:13] VITALS: BP 101/57
[2020-08-30 22:00] VITALS: BP 117/74
[2020-08-31] MEDS: PIPERACILLIN-TAZOB 2.25GM 50 ML IV SCH ×3 (02:46→18:40)
[2020-08-31 05:09] VITALS: BP 131/71
[2020-08-31] MEDS: SODIUM CHLOR 0.9% PF (SALINE LOCK) 10ML VIAL/SYR IV SCH ×3 (06:00→21:48)
[2020-08-31 06:49] LABS: Basophils # (auto) 0 10 ^3/uL (0-0.2); Eosinophils # (auto) 0.2 10 ^3/uL (0-0.8); Eosinophils % (auto) 5.9 % (0.0-7.0); Lymphocytes # (auto) 1.3 10 ^3/uL (0.4-5.4); Monocytes # (auto) 0.4 10 ^3/uL (0-1.3); Neutrophils # (auto) 1.7 10 ^3/uL (1.6-8.6)
[2020-08-31 06:52] LABS: Basophils % (auto) 1.4 % (0.0-2.0); Hemoglobin 12.6 g/dL (12.2-16.2); Lymphocytes % (auto) 35.7 % (10.0-50.0); Mean Corpuscular Hemoglobin 35.5 pg (28.0-32.0); Mean Corpuscular Hgb Conc. 33.3 g/dL (32.0-36.0); Mean Corpuscular Volume 106.6 fL (80.0-100.0); Monocytes % (auto) 10.9 % (0.0-12.0); Neutrophils % (auto) 46.1 % (37.0-80.0); Nucleated Red Blood Cells % 0.2 %; Platelet Count (auto) 95 10^3/uL (140-450); Red Blood Cells 3.57 10^6/uL (4.0-5.20); Red Cell Distribution Width 17.2 % (11.8-14.3); White Blood Cell 3.7 10^3/uL (4.4-10.8)
[2020-08-31] MEDS: LEVOTHYROXINE SODIUM 50 MCG TAB PO SCH (06:52)
[2020-08-31 07:01] LABS: Potassium 3.2 mmol/L (3.5-5.1)
[2020-08-31 07:09] LABS: BUN/Creatinine Ratio 15.7; Calcium 8.6 mg/dL (8.5-10.1)
--- NOTE | 2020-08-31 07:30 | NUR ---
Opening Shift Note Upon entering room patient was awake. No signs of distress noted. Patient is oriented to self, and situation, but experiences periods of confusion about time and place. Educated patient on the use of the call light PRN. Call light within reach. Respirations even and unlabored. Bed locked and in lowest position with two side rails up. Will continue to monitor for changes.
[2020-08-31 09:00] VITALS: BP 117/71
[2020-08-31] MEDS: FUROSEMIDE 40 MG/4 ML VIAL IV SCH (09:16)
[2020-08-31] MEDS: MULTIPLE VITAMIN TAB PO SCH (09:19)
[2020-08-31] MEDS: FAMOTIDINE 20 MG TAB PO SCH ×2 (09:19→21:54)
[2020-08-31] MEDS: HEPARIN SODIUM (PORCINE) 5000 UNITS/ML 1ML VIAL SC SCH ×2 (09:19→21:56)
[2020-08-31] MEDS: ASCORBIC ACID 500 MG TAB PO SCH ×2 (09:20→21:54)
[2020-08-31] MEDS: POTASSIUM CHL 20 Meq TABLET PO SCH (09:20)
[2020-08-31] MEDS: ZINC SULFATE 220mg CAP or TAB PO SCH (09:20)
[2020-08-31 13:00] VITALS: BP 119/58
--- NOTE | 2020-08-31 16:42 | NUR ---
Call from Son Spoke with son. Verified identify after speaking with patient and some other questions regarding patient's chart. Ramos is asking to visit patient. Will notify MD of son's wishes.
[2020-08-31 17:00] VITALS: BP 101/60
--- NOTE | 2020-08-31 17:20 | NUR ---
Patient Condition/Family Questions Notified Dr. Tang of patient's run of v-tach earlier. Also notified that family is asking that pacemaker be interrogated. Dr. Tang verbalizes understanding.
--- NOTE | 2020-08-31 19:25 | NUR ---
Opening Shift Note Assumed care of patient. Patient is asleep at this time. No S/S of respiratory distress noted. Respirations are regular and non-labored. Bed in locked lowest position, side rails up X 3 for patient safety, call light and bed table are within reach. Pat is patent, below the bladder level, draining yellolw urine. Patient will be instructed on POC and encourage to call for assistance as needed. Will continue to monitor for changes Q1hr and PRN.
--- NOTE | 2020-08-31 19:34 | NUR ---
Closing Shift Note Patient resting in bed. Patient shows no signs or symptoms of distress or shortness of breath. Report given. Will endorse care to the retail shift leader RN.
[2020-08-31 20:00] VITALS: BP 90/52
[2020-08-31 22:00] VITALS: BP 90/52
[2020-09-01] MEDS: PIPERACILLIN-TAZOB 2.25GM 50 ML IV SCH ×3 (03:30→18:45)
[2020-09-01 05:00] VITALS: BP 117/59
[2020-09-01] MEDS: SODIUM CHLOR 0.9% PF (SALINE LOCK) 10ML VIAL/SYR IV SCH ×2 (05:28→13:49)
[2020-09-01] MEDS: LEVOTHYROXINE SODIUM 50 MCG TAB PO SCH (06:44)
[2020-09-01 09:00] VITALS: BP 118/59
[2020-09-01] MEDS: ASCORBIC ACID 500 MG TAB PO SCH (09:08)
[2020-09-01] MEDS: ZINC SULFATE 220mg CAP or TAB PO SCH (09:09)
[2020-09-01] MEDS: MULTIPLE VITAMIN TAB PO SCH (09:09)
[2020-09-01] MEDS: POTASSIUM CHL 20 Meq TABLET PO SCH (09:09)
[2020-09-01] MEDS: FUROSEMIDE 40 MG/4 ML VIAL IV SCH (09:10)
[2020-09-01] MEDS: FAMOTIDINE 20 MG TAB PO SCH (09:10)
[2020-09-01] MEDS: HEPARIN SODIUM (PORCINE) 5000 UNITS/ML 1ML VIAL SC SCH (09:21)
[2020-09-01 11:17] LABS: Basophils # (auto) 0.1 10 ^3/uL (0-0.2); Eosinophils # (auto) 0.2 10 ^3/uL (0-0.8); Hemoglobin 12.6 g/dL (12.2-16.2); Lymphocytes # (auto) 1.2 10 ^3/uL (0.4-5.4)
[2020-09-01 11:20] LABS: Eosinophils % (auto) 4.9 % (0.0-7.0); Hematocrit 37.5 % (36.0-46.0); Mean Corpuscular Hemoglobin 35.4 pg (28.0-32.0); Mean Corpuscular Hgb Conc. 33.5 g/dL (32.0-36.0); Mean Corpuscular Volume 105.8 fL (80.0-100.0); Monocytes # (auto) 0.4 10 ^3/uL (0-1.3); Monocytes % (auto) 10.3 % (0.0-12.0); Neutrophils # (auto) 1.7 10 ^3/uL (1.6-8.6); Neutrophils % (auto) 47.8 % (37.0-80.0); Nucleated Red Blood Cells % 0.2 %; Platelet Count (auto) 93 10^3/uL (140-450); Red Blood Cells 3.55 10^6/uL (4.0-5.20); Red Cell Distribution Width 17.4 % (11.8-14.3); White Blood Cell 3.5 10^3/uL (4.4-10.8)
[2020-09-01 11:49] LABS: Calcium 8.2 mg/dL (8.5-10.1)
[2020-09-01 12:22] LABS: Potassium 2.9 mmol/L (3.5-5.1)
--- NOTE | 2020-09-01 12:36 | NUR ---
Consultation Patient is a 85 year old female, patient is confused. Regarding consultation for hospice to [facility] per Dr. Tang. AUGUSTINE FERRARO (Tracy), had spoken with daughter Sharmaine, who want her [facility] instead of [facility]. Nurse Anat spoke with daughter to verify the change of Hospice facility and daughter confirmed that she wants her mother admitted [facility]. AUGUSTINE proceed and faxed all documents to [facility], AUGUSTINE is awaiting for confirmation patient acceptance. Addendum: 09/01/20 at 1246 by TRACY GALLEGOS Amended: Links added.
--- NOTE | 2020-09-01 12:40 | NUR ---
Spoke to Irena Spoke to Irena, daughter, regarding hospice choices. Daughter, is insisting on [facility] because her friend works for the company. Will notify MD and social work specialist.
--- NOTE | 2020-09-01 12:42 | NUR ---
Critical Potassium Message to Dr. Tang regarding patient's critical potassium. New orders received.
[2020-09-01 13:00] VITALS: BP 121/60
[2020-09-01] MEDS: POTASSIUM CHL 20MEQ/100ML 100 ML IV SCH ×3 (13:49→18:00)
--- NOTE | 2020-09-01 15:49 | NUR ---
Nutrition Followup Note Wt 90.1 kg Pt was sleeping when rounded this morning. Per pt records pt with severe hypokal correcting. Pt is currently on Cardiac diet with inadequate PO of 33% x 3 per RN doc Est Energy needs: 3227-6769 kcals (17-20 kcal/kgBW), Est Protein needs: 51-64 gms/day (0.6-0.75 gm/kgBW) d/t Stg 3 CKF. Will continue to monitor and reassess prn. Labs: HIGINIO 2.8 H, AST 64 H, Alk Phos 123 H ALB 2.0 L BM: Pt had 1 BM on 08/31 per RN note Skin: BS 15 mod risk, full details in day care supervisor note PES: 1) Inadequate oral intake aeb pt with 0% PO intake r/t pt is with a poor appetite 2) Altered nutrition related lab values aeb elev RFTs, elev LFTs, hypokalemia, hypocalcemia, hypoalbuminemia r/t current/chronic medical condition Comments: Will continue to monitor PO intake, skin status. F/u high 3-5 days Rec: 1) consider prostat 1 packet bid as RFT improve. 2) consider ensure Enlive 1 carton bid if PO continues to be low. 3) continue current plan of care
[2020-09-01 17:00] VITALS: BP 119/76
[2020-09-01 17:44] VITALS: BP 119/76
--- NOTE | 2020-09-01 18:13 | NUR ---
Wound Care/Photos Wound care done at this time. Patient discharge photos taken at this time.
--- NOTE | 2020-09-01 18:38 | NUR ---
Report Attempt Attempted to call report to number provided by Gerri in addiction social worker. The number provided was the number for [employer]. No other note provided regarding hospice information. Will endorse to signalman RN.
--- NOTE | 2020-09-01 19:18 | NUR ---
Closing Shift Note Patient resting in bed. No distress noted. Pick-up planned from [id number] by [employer]. [employer] has called and been updated on patient status. film processing shift supervisor RN aware that report has not been given to hospice nurse, "Kenrick," due to not having any information. However, report was given to hospice company primary care sales representative when on unit during evaluation. Endorsed to film processing shift supervisor RN.
--- NOTE | 2020-09-01 21:10 | NUR ---
Discharge instructions PREPARED BY BRITTANY PARKER AND given as ordered. Encourage to follow up with PMD as instructed. All questions and concerns addressed. Patient verbalized understanding. Medication reconciliation form completed and copy given to patient. IV removed with catheter intact, pressure dressing applied, klein catheter IN PLACE WITH PATIENT TO HOME. Telemetry unit returned to ICU. Patient taken to vehicle via GURNEY with all personal belongings, accompanied by staff OF [employer]. No distress noted at time of departure.
== END 2020-09-01 21:10 | disposition hospice, home (50) | DRG 871 ==
LOC: ER 15:59 → EDBD 15:59 → TELE 16:00 → TELE-WESTW 08-26 03:05
PROVIDERS: ADMIT Nurse Practitioner Family; ATTEND Internal Medicine Cardiovascular Disease
DX: A41.9 Sepsis, unspecified organism (principal); G93.41 Metabolic encephalopathy; L89.153 Pressure ulcer of sacral region, stage 3; D68.59 Other primary thrombophilia; I50.32 Chronic diastolic (congestive) heart failure; E87.6 Hypokalemia; I48.91 Unspecified atrial fibrillation; I11.0 Hypertensive heart disease with heart failure; R06.4 Hyperventilation; Z20.828 Contact with and (suspected) exposure to other viral communicable diseases; R77.8 Other specified abnormalities of plasma proteins; N28.9 Disorder of kidney and ureter, unspecified; D64.9 Anemia, unspecified; E03.9 Hypothyroidism, unspecified; M19.90 Unspecified osteoarthritis, unspecified site; E78.5 Hyperlipidemia, unspecified; Z88.5 Allergy status to narcotic agent; Z91.040 Latex allergy status; Z80.51 Family history of malignant neoplasm of kidney; Z80.8 Family history of malignant neoplasm of other organs or systems; Z82.5 Family history of asthma and other chronic lower respiratory diseases; Z95.0 Presence of cardiac pacemaker
CPT/HCPCS: 36415; 36600; 51702; 70450; 71045; 71275; 80048; 80053; 80061; 81001; 82728; 82805; 83605; 83615; 83735; 83880; 84443; 84484; 85025; 85379; 86141; 87040; 87081; 87426; 93005; 93306; 96365; 96366; 99291; G0378; J2001; J2543; J3480